=== PATIENT | female | born 1995 | race Hispanic/Latino ===

== ENCOUNTER 2016-08-29 14:03 | Inpatient (IN) | payer MEDICAID ==
[2016-08-29 14:45] LABS: ADD MANUAL DIFF? NO
[2016-08-29 14:58] LABS: PH,URINE 7.5 (4.7-8.0); URINE APPEARANCE CLEAR (CLEAR); URINE BILIRUBIN SMALL (NEGATIVE); URINE BLOOD NEGATIVE (NEGATIVE); URINE COLOR YELLOW (YELLOW); URINE GLUCOSE (UA) NEGATIVE (NEGATIVE); URINE KETONE NEGATIVE (NEGATIVE); URINE LEUKOCYTE ESTERASE NEGATIVE Leu/uL (NEGATIVE); URINE PROTEIN 100 mg/dL (<30 mg/dL)
[2016-08-29 14:58] LABS: ALB/GLOB RATIO 1.3 (1.1-1.8); ALKALINE PHOSPHATASE 228 U/L (38-133); ALT/SGPT 503 U/L (7-56); AST/SGOT 574 U/L (15-39); BASO # 0.03 K/mm3 (0.0-2.0); BASO % 0.3 % (0.0-3.0); BLOOD UREA NITROGEN 15 mg/dL (7-21); CALCIUM 9.5 mg/dL (8.4-10.5); CARBON DIOXIDE 28 mmol/L (21-33); CHLORIDE 100 mmol/L (98-107); EOS # 0.1 (0.0-0.7); EOS % 1.3 % (1.5-5.0); GFR AFRICAN-AMERICAN > 60; GLUCOSE,RANDOM 85 mg/dL (70-110); GRAN # 5.95 (1.4-6.5); GRAN % 65.3 % (50.0-68.0); HEMATOCRIT 37.3 % (36.0-48.0); LYMPH # 2.2 (1.2-3.4); LYMPH % 24.4 % (22.0-35.0); MEAN CELL VOLUME 83.6 fL (80.0-105.0); MEAN CORPUSCULAR HEMOGLOBIN 27.6 pg (25.0-35.0); MEAN PLATELET VOLUME 10.1 fl (7.0-11.0); MONO # 0.8 (0.1-0.6); MONO % 8.7 % (1.0-6.0); PLATELET COUNT 320 10^3/uL (120.0-450.0); POTASSIUM 4.2 mmol/L (3.6-5.0); RED CELL DISTRIBUTION WIDTH 14.3 % (11.5-14.5); SODIUM 139 mmol/L (132-148); TOTAL PROTEIN 7.4 g/dL (5.8-8.3); WHITE BLOOD COUNT 9.1 10^3/ul (4.5-11.0)
--- NOTE | 2016-08-29 15:01 | ED PDOC ---
Arrival/HPI - General Chief Complaint: Chest Pain Time Seen by Provider: 08/29/16 14:24 - History of Present Illness Narrative History of Present Illness (Text): 21F complains of anterior chest pain only at night when she lies down for the last 2 nights. no pain during the day, no pain currently. she also reports feeling sweaty last 2 nights as well and also had some vomiting last night. she was recently admitted to [facility] she says for endocarditis which she was told originated from the multiple skin wounds which she says is caused by constantly "picking." she was dc to a rehab facility where she received 6 weeks of IV abx via picc and was dc from there 3 weeks ago. she is worried bc she says she experienced similar chest pain when she was first dx w endocarditis. she denies any IVDA. she smokes. denies etoh. no ocp. Past Medical History - Cardiac Hx Cardiac Disorders: Yes Other/Comment: Endocarditis - Psychiatric Hx Psychophysiologic Disorder: Yes Hx Bipolar Disorder: Yes Hx Substance Use: No Family/Social History Family/Social History: Other (nc) Smoking Status: Heavy Smoker > 10 Cigarettes Daily Hx Alcohol Use: Yes Frequency of alcohol use: Socially Hx Substance Use: No Allergies/Home Meds Allergies/Adverse Reactions: Allergies No Known Allergies Allergy (Verified 08/29/16 14:10) Review of Systems - Physician Review All systems were reviewed & negative as marked: Yes - Review of Systems Constitutional: Night Sweats. absent: Fevers Eyes: absent: Vision Changes Respiratory: absent: SOB, Cough Cardiovascular: Chest Pain Gastrointestinal: Nausea, Vomiting. absent: Abdominal Pain Genitourinary Female: absent: Dysuria Skin: Skin Lesions Neurological: absent: Headache, Dizziness, Focal Weakness Physical Exam Vital Signs Reviewed: Yes Vital Signs Temp Pulse Resp BP Pulse Ox 08/29/16 18:39 69 20 137/77 98 08/29/16 14:17 99.2 F 74 16 136/71 98 Appearance: Positive for: Well-Appearing, Non-Toxic, Comfortable Pain Distress: None Mental Status: Positive for: Alert and Oriented X 3 - Systems Exam Head: Present: Atraumatic Pupils: Present: PERRL Extroacular Muscles: Present: EOMI Mouth: Present: Moist Mucous Membranes Nose (Internal): No: Epistaxis Neck: Present: Normal Range of Motion Respiratory/Chest: Present: Clear to Auscultation. No: Respiratory Distress, Accessory Muscle Use Cardiovascular: Present: Regular Rate and Rhythm. 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 upon further questioning the pt does admit to IVDA last 1 year ago. I disc test results w her and plan for admission. - Lab Interpretations Microbiology Results: Microbiology Results 08/29/16 15:15 Blood-Venous Blood Culture - Final NO GROWTH AFTER 5 DAYS 08/29/16 15:15 Blood-Venous Gram Stain - Final TEST NOT PERFORMED 08/29/16 14:31 Blood-Venous Blood Culture - Final NO GROWTH AFTER 5 DAYS 08/29/16 14:31 Blood-Venous Gram Stain - Final TEST NOT PERFORMED 08/29/16 14:40 Urine Urine Culture - Final Gram Positive Cocci Lab Results: 08/29/16 14:31 08/29/16 14:31 Lab Results 08/29/16 14:40: Urine Color Yellow, Urine Appearance Clear, Urine pH 7.5, Ur Specific [place] 1.015, Urine Protein 100 H, Urine Glucose (UA) Negative, Urine Ketones Negative, Urine Blood Negative, Urine Nitrate Negative, Urine Bilirubin Small H, Urine Urobilinogen 2.0 H, Ur Leukocyte Esterase Negative, Urine RBC 0 - 2, Urine WBC 1 - 3, Ur Epithelial Cells Many, Amorphous Sediment Few, Urine Bacteria Many, Urine Other Uyeast, Urine HCG, Qual Negative 08/29/16 14:31: Sodium 139, Potassium 4.2, Chloride 100, Carbon Dioxide 28, Anion Gap 15, BUN 15, Creatinine 0.7, Est GFR ( Amer) > 60, Est GFR (Non- Af Amer) > 60, Random Glucose 85, Calcium 9.5, Total Bilirubin 1.0, AST 574 H, ALT 503 H, Alkaline Phosphatase 228 H, Troponin I < 0.01, NT-Pro-B Natriuret Pep 76.0, Total Protein 7.4, Albumin 4.2, Globulin 3.3, Albumin/Globulin Ratio 1.3 08/29/16 14:31: D-Dimer, Quantitative 1.02 H 08/29/16 14:31: WBC 9.1, RBC 4.46, Hgb 12.3, Hct 37.3, MCV 83.6, MCH 27.6, MCHC 33.0, RDW 14.3, Plt Count 320, MPV 10.1, Gran % 65.3, Lymph % (Auto) 24.4, [place] % (Auto) 8.7 H, Eos % (Auto) 1.3 L, Baso % (Auto) 0.3, Gran # 5.95, Lymph # 2.2 , [place] # 0.8 H, Eos # 0.1, Baso # 0.03 - RAD Interpretation Radiology Orders: 08/29/16 14:37 CHEST TWO VIEWS (PA/LAT) [RAD] Stat 08/29/16 15:26 ANGIO CHEST PE PROTOCOL [CT] Stat - Medication Orders Current Medication Orders: Discontinued Medications Apixaban (Eliquis) 10 mg PO ONCE ONE PRN Reason: Protocol Stop: 08/31/16 13:01 Last Admin: 08/31/16 13:04 Dose: 10 mg Apixaban (Eliquis) 10 mg PO BID [place] PRN Reason: Protocol Last Admin: 09/02/16 18:20 Dose: 10 mg Escitalopram Oxalate (Lexapro) 10 mg PO DAILY [facility] Last Admin: 09/02/16 11:07 Dose: 10 mg Heparin Sodium (Porcine) (Heparin) 7,100 units 80 units/kg (7100 units) IV ONCE ONE PRN Reason: Protocol Stop: 08/29/16 17:04 Last Admin: 08/29/16 17:49 Dose: 7,100 units Heparin Sodium (Porcine) (Heparin) 3,600 units IV STAT STA Stop: 08/30/16 17:36 Last Admin: 08/30/16 16:40 Dose: 3,600 units Heparin Sodium/Sodium Chloride (Heparin 44114 Units/250ml 1/2 Normal Saline) 25 ,000 units in 250 mls @ 16.329 mls/hr IV .[id number] PRN; Protocol; 18 UNITS/KG/HR PRN Reason: ADJUST RATE PER PROTOCOL Last Admin: 08/31/16 09:20 Dose: 20.17 units/kg/hr, 18.298 mls/hr Iodixanol (Visipaque 320 Mg/Ml 100 Ml) Confirm Administered Dose 100 ml IV .STK- MED ONE Stop: 08/29/16 15:32 Pantoprazole Sodium (Protonix Ec Tab) 40 mg PO 0600 [place] Last Admin: 09/02/16 06:28 Dose: 40 mg Permethrin (Permethrin 5% Cream) 0 gm TOP ONCE ONE Stop: 08/30/16 02:22 Last Admin: 08/30/16 03:00 Dose: 1 appl Permethrin (Permethrin 5% Cream) 0 gm TOP ONCE ONE Stop: 08/31/16 14:16 Last Admin: 08/31/16 18:10 Dose: 1 appl Disposition/Present on Arrival - Present on Arrival Any Indicators Present on Arrival: No History of DVT/PE: No History of Uncontrolled Diabetes: No Urinary Catheter: No History of Decub. Ulcer: No History Surgical Site Infection Following: None - Disposition Have Diagnosis and Disposition been Completed?: Yes Diagnosis: Pulmonary embolism, History of endocarditis Disposition: HOSPITALIZED Disposition Time: 17:05 Condition: STABLE
[2016-08-29 15:10] LABS: TROPONIN I < 0.01 ng/mL
[2016-08-29 15:14] LABS: URINE RBC 0 - 2 /hpf (0-2)
[2016-08-29 15:15] LABS: URINE AMORPHOUS SEDIMENT FEW; URINE BACTERIA MANY (NEG); URINE EPITHELIAL CELLS MANY /hpf (0-5)
[2016-08-29] MEDS ORDERED: Iodixanol 320 MG/ML 100 ML BOTTLE IV ONE (15:31)
--- NOTE | 2016-08-29 16:58 | CT ---
PROCEDURE: CT Chest with contrast (Pulmonary Angiogram) HISTORY: chest pain +ddimer COMPARISON: None available. TECHNIQUE: Axial computed tomography images were obtained of the chest in the pulmonary arterial phase of enhancement. Coronal and sagittal reformatted images were created and reviewed. Intravenous contrast dose: 100 mL Visipaque 320 Radiation dose: Total exam DLP = 704.63 mGy-cm. This CT exam was performed using one or more of the following dose reduction techniques: Automated exposure control, adjustment of the mA and/or kV according to patient size, and/or use of iterative reconstruction technique. FINDINGS: PULMONARY ARTERIES: There is a filling defect in a segmental right lower lobe pulmonary artery branch extending into multiple subsegmental branch vessels. There is no other pulmonary arterial filling defect seen elsewhere. AORTA: No acute findings. No thoracic aortic aneurysm. LUNGS: No pulmonary infiltrate. There is an irregular nodular opacity in the right upper lobe protruding partially into a small bulla. This nodule measures approximately 1.5 cm in greatest dimension. There is an irregular opacity in the anterior right lower lobe, somewhat curvilinear and pleural-based. There is an 11 mm ovoid nodule in the left lower lobe, superior segment. PLEURAL SPACES: Unremarkable. No effusion or pneuomothorax. HEART: Unremarkable. No cardiomegaly. No significant pericardial effusion. LYMPH NODES: No lymphadenopathy. BONES, CHEST WALL: Unremarkable. No fracture or destructive lesion OTHER FINDINGS: Minimal splenomegaly. The spleen measures approximately 13.6 cm in greatest dimension. IMPRESSION: Pulmonary embolism to the right lower lobe. No pulmonary infiltrate. Multiple nodular opacities as described, 1 of which in the right upper lobe is associated with or protrudes into a small bulla. Uncertain significance. This does not appear to represent an intracavitary Aspergillus infection (aspergilloma). Followup of these nodular opacity is advised to rule out underlying neoplasm. .
[2016-08-29] MEDS ORDERED: Heparin25000 units/250ml 1/2NS 25,000 UNITS/250 ML BAG IV PRN (17:03)
[2016-08-29 17:19] VITALS: BMI 27.8
[2016-08-29 17:38] LABS: INR 1.03 (0.93-1.08); PARTIAL THROMBOPLASTIN TIME 26.1 Seconds (23.7-30.8)
[2016-08-29] MEDS: Heparin25000 units/250ml 1/2NS 25,000 UNITS/250 ML BAG IV PRN (17:50)
--- NOTE | 2016-08-29 18:27 | CARD ---
APPROVED REPORT EKG Measurement Heart [id number] <Conclusion> Normal sinus rhythm Normal ECG
--- NOTE | 2016-08-29 20:01 | CP.PCM.HP ---
<Vin Botello - Last Filed: 08/30/16 05:39> History of Present Illness - History of Present Illness History of Present Illness: cc: Chest pain HPI: Patient is a 21yo female with past medical history of endocarditis, hepatitis C that presents c/o chest pain. Patient reported that the pain started 2 days prior and was most noticeable at night when laying in bed. She stated that the pain was not as apparent during the day and was associated with diaphoresis, nausea and nonbilious, nonbloody vomiting. Patient also reported that she was recently admitted to [facility] for endocarditis for which she had a PICC line placed and underwent 6 weeks of IV antibiotics. In the ED, patient had a d-dimer which was elevated. A subsequent CT angio revealed RLL pulmonary embolism. She was started on heparin drip and admitted for further workup. She denied fever, chills, cough, abdominal pain, focal weakness, numbness, tingling, dysuria, frequency, urgency. 12point ROS as per HPI above, otherwise negative PMHx: Endocarditis, Hepatitis C PSHx: denies Allergies: NKDA Social Hx: Tobacco use, denies alcohol and illicit drug use Present on Admission - Present on Admission Any Indicators Present on Admission: No Past Patient History - Past Social History Smoking Status: Heavy Smoker > 10 Cigarettes Daily - CARDIAC Hx Cardiac Disorders: Yes Other/Comment: Endocarditis - PSYCHIATRIC Hx Psychophysiologic Disorder: Yes Hx Bipolar Disorder: Yes Hx Substance Use: No Meds Allergies/Adverse Reactions: Allergies Allergy/AdvReac Type Severity Reaction Status Date / Time No Known Allergies Allergy Verified 08/29/16 14:10 Physical Exam - Constitutional Appears: Non-toxic, No Acute Distress - Head Exam Head Exam: ATRAUMATIC, NORMAL INSPECTION, NORMOCEPHALIC - Eye Exam Eye Exam: EOMI, PERRL - ENT Exam ENT Exam: Mucous Membranes Moist - Neck Exam Neck exam: Positive for: Normal Inspection - Respiratory Exam Respiratory Exam: Clear to Auscultation Bilateral. absent: Rales, Rhonchi, Wheezes - Cardiovascular Exam Cardiovascular Exam: RRR, +S1, +S2. absent: Diastolic murmur, Gallop, JVD, Rubs , Systolic Murmur - GI/Abdominal Exam GI & Abdominal Exam: Normal Bowel Sounds, Soft. absent: Distended, Firm, Guarding, Rebound, Rigid, Tenderness - Extremities Exam Extremities exam: Positive for: normal inspection, pedal pulses present. Negative for: calf tenderness, pedal edema, tenderness - Neurological Exam Neurological exam: Alert, CN II-XII Intact, Oriented x3 - Psychiatric Exam Psychiatric exam: Normal Affect, Normal Mood - Skin Skin Exam: Dry, Normal Color, Warm Additional comments: multiple lesions on lower extremities Results - Vital Signs Recent Vital Signs: Last Vital Signs Temp 99.2 F 08/29/16 14:17 Pulse 69 08/29/16 18:39 Resp 20 08/29/16 18:39 BP 137/77 08/29/16 18:39 Pulse Ox 98 08/29/16 18:39 - Labs Result Diagrams: 08/29/16 14:31 08/29/16 14:31 Labs: Laboratory Results - last 24 hr 08/29/16 17:15 PT 11.1 INR 1.03 APTT 26.1 Assessment & Plan - Assessment and Plan (Free Text) Plan: 21yo female with history of endocarditis presents c/o chest pain associated with dyspnea and diaphoresis secondary to RLL pulmonary embolism 1. Pulmonary embolism -D-dimer elevated -EKG revealed normal sinus rhythm at 64bpm with no acute ST-T wave changes -CXR revealed no active disease -CT angio revealed RLL pulmonary embolism; see full report -Patient started on heparin drip -Echocardiogram pending -Lower extremity venous duplex pending -Coagulopathy workup pending: Protein C/S, Antithrombin, Prothrombin, Factor V leiden -Hematology consulted - Dr. Salazar 2. History of endocarditis -Echocardiogram pending -Blood cultures pending -ID consulted - Dr. Berg 3. Hepatitis C -GI consulted - Dr. Hou 4. Scabies -Permethrin cream Patient seen and case discussed with attending, Dr. Joseph - Date & Time Date: 08/29/16 Time: 20:02 <Doris Joseph - Last Filed: 08/30/16 20:22> Results - Vital Signs Recent Vital Signs: Last Vital Signs Temp 98.1 F 08/30/16 00:01 Pulse 66 08/30/16 06:00 Resp 18 08/30/16 00:01 BP 126/79 08/30/16 00:01 Pulse Ox 100 08/30/16 00:00 - Labs Result Diagrams: 08/30/16 06:30 08/30/16 06:30 Labs: Laboratory Results - last 24 hr 08/30/16 08/30/16 08/30/16 06:30 06:30 06:30 WBC 9.4 RBC 4.53 Hgb 12.4 Hct 38.0 MCV 83.9 MCH 27.4 MCHC 32.6 RDW 14.3 Plt Count 289 MPV 9.7 Gran % 48.5 L Lymph % (Auto) 43.0 H [place] % (Auto) 5.6 Eos % (Auto) 2.6 Baso % (Auto) 0.3 Gran # 4.55 Lymph # 4.0 H [place] # 0.5 Eos # 0.2 Baso # 0.03 PT INR APTT Sodium 138 Potassium 3.8 Chloride 101 Carbon Dioxide 26 Anion Gap 15 BUN 11 Creatinine 0.5 Est GFR ( Amer) > 60 Est GFR (Non-Af Amer) > 60 Random Glucose 88 Calcium 9.2 Total Bilirubin 0.5 AST 247 H ALT 397 H Alkaline Phosphatase 199 H Total Protein 7.3 Albumin 4.1 Globulin 3.3 Albumin/Globulin Ratio 1.2 Procalcitonin < 0.05 L Acetaminophen Alcohol, Quantitative 08/30/16 08/30/16 08/30/16 06:30 08:30 09:00 WBC RBC Hgb Hct MCV MCH MCHC RDW Plt Count MPV Gran % Lymph % (Auto) [place] % (Auto) Eos % (Auto) Baso % (Auto) Gran # Lymph # [place] # Eos # Baso # PT 11.2 INR 1.04 APTT 50.4 H Sodium Potassium Chloride Carbon Dioxide Anion Gap BUN Creatinine Est GFR ( Amer) Est GFR (Non-Af Amer) Random Glucose Calcium Total Bilirubin AST ALT Alkaline Phosphatase Total Protein Albumin Globulin Albumin/Globulin Ratio Procalcitonin Acetaminophen < 10.0 L Alcohol, Quantitative < 10 08/30/16 16:05 WBC RBC Hgb Hct MCV MCH MCHC RDW Plt Count MPV Gran % Lymph % (Auto) [place] % (Auto) Eos % (Auto) Baso % (Auto) Gran # Lymph # [place] # Eos # Baso # PT INR APTT 36.7 H Sodium Potassium Chloride Carbon Dioxide Anion Gap BUN Creatinine Est GFR ( Amer) Est GFR (Non-Af Amer) Random Glucose Calcium Total Bilirubin AST ALT Alkaline Phosphatase Total Protein Albumin Globulin Albumin/Globulin Ratio Procalcitonin Acetaminophen Alcohol, Quantitative Attending/Attestation - Attestation I have personally seen and examined this patient.: Yes I have fully participated in the care of the patient.: Yes I have reviewed all pertinent clinical information: Yes Notes (Text): 08/30/16 20:21 Patient was seen when she was in bed # 5 in the ER. Agree with history, physical examination, assessment and plan.
[2016-08-30] MEDS ORDERED: Permethrin 5% Cream(60 gm) TOP ONE (02:21)
--- NOTE | 2016-08-30 08:02 | CP.PCM.CON ---
History of Present Illness - History of Present Illness History of Present Illness: Asked by hospitalist team for a GI consultation on this patient. 21 year old female with history of IVDA (heroin use 1 year ago), endocarditis, HCV ( diagnosed in June 2016 at [place], treatment naive), who is admitted to hospital with complaint of substernal chest pain. GI called for evaluation of elevated LFTs. She initially was describing substernal chest discomfort which was worse on activity and associated with diaphoresis and is currently undergoing treatment for acute pulmonary embolism. She denies abdominal pain, nausea, vomiting, diarrhea, fever/chills, weight loss, rectal bleeding, jaundice , pruritis, excessive ETOH or tylenol use. No prior endoscopic evaluation. Review of vitals from today are normal. Social history: smokes 1 PPD cigarettes, social ETOH use Family history: Reviewed, patient denies history of GI malignancies Review of Systems - Review of Systems Review of Systems: - All other comprehensive 12 point review of systems performed, negative - Cardiovascular Cardiovascular: Chest Pain with Activity - Respiratory Respiratory: absent: Cough, Dyspnea, Hemoptysis, Dyspnea on Exertion, Wheezing, Snoring, Stridor, Pain on Inspiration, Chest Congestion, Excessive Mucous Production, Change in Mucous Color, Pain with Coughing, Other - Gastrointestinal Gastrointestinal: absent: Abdominal Pain, Belching, Bloating, Change in Bowel Habits, Change in Stool Character, Coffee Ground Emesis, Constipation, Cramping , Diarrhea, Dyspepsia, Dysphagia, Early Satiety, Excessive Flatus, Fecal Incontinence, Heartburn, Hematemesis, Hematochezia, Loose Stools, Melena, Nausea , Odynophagia, Temesmus, Vomiting, Other - Musculoskeletal Musculoskeletal: absent: Abnormal Gait, Arthralgias, Atrophy, Back Pain, Deformity, Joint Swelling, Limited Range of Motion, Loss of Height, Muscle Cramps, Muscle Weakness, Myalgias, Neck Pain, Numbness, Radiating Pain into Limb , Stiffness, Tingling, Other - Neurological Neurological: absent: Abnormal Gait, Abnormal Hearing, Abnormal Movements, Abnormal Speech, Behavioral Changes, Burning Sensations, Confusion, Convulsions , Disequilibrium, Dizziness, Numbness, Focal Weakness, Frequent Falls, Headaches , Lack of Coordination, Loss of Vision, Memory Loss, Paresthesias, Radicular Pain, Restless Legs, Sensory Deficit, Syncope, Tingling, Tremor, Vertigo, Weakness, Other Visual Disturbances, Other Past Patient History - Past Social History Smoking Status: Heavy Smoker > 10 Cigarettes Daily - CARDIAC Hx Cardiac Disorders: Yes Other/Comment: Endocarditis - PULMONARY Hx Respiratory Disorders: No - NEUROLOGICAL Hx Neurological Disorder: Yes Other/Comment: bipolar - HEENT Hx HEENT Problems: Yes 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 - RENAL Hx Chronic Kidney Disease: No - ENDOCRINE/METABOLIC Hx Endocrine Disorders: No - HEMATOLOGICAL/ONCOLOGICAL Hx Blood Disorders: Yes Hx AIDS: No Hx Anemia: No Hx Cancer: No Hx Chemotherapy: No Hx Cirrhosis: No Hx Hepatitis A: No Hx Hepatitis B: No Hx Hepatitis C: Yes Hx Human Immunodeficiency Virus (HIV): No Hx Metastesis: No Hx Shingles: No Hx Unexplained Bleeding: No - INTEGUMENTARY Hx Dermatological Problems: Yes Other/Comment: bed bug bits on bilateral ankles - MUSCULOSKELETAL/RHEUMATOLOGICAL Hx Musculoskeletal Disorders: No Hx Falls: No - GASTROINTESTINAL Hx Gastrointestinal Disorders: No - GENITOURINARY/GYNECOLOGICAL Hx Genitourinary Disorders: No - PSYCHIATRIC Hx Psychophysiologic Disorder: Yes Hx Bipolar Disorder: Yes Hx Substance Use: No - SURGICAL HISTORY Hx Surgeries: No Hx Cardiac Catheterization: No Hx Coronary Stent: No Meds Allergies/Adverse Reactions: Allergies Allergy/AdvReac Type Severity Reaction Status Date / Time No Known Allergies Allergy Verified 08/29/16 14:10 - Medications Medications: Current Medications Heparin Sodium/Sodium Chloride (Heparin 95853 Units/250ml 1/2 Normal Saline) 25 ,000 units in 250 mls @ 16.329 mls/hr IV .[id number] PRN; Protocol; 18 UNITS/KG/HR PRN Reason: ADJUST RATE PER PROTOCOL Last Admin: 08/29/16 17:50 Dose: 18 units/kg/hr, 16.329 mls/hr Physical Exam - Constitutional Appears: Non-toxic, No Acute Distress - Head Exam Head Exam: NORMAL INSPECTION - Eye Exam Eye Exam: EOMI, Normal appearance - ENT Exam ENT Exam: Mucous Membranes Moist - Respiratory Exam Respiratory Exam: Clear to Auscultation Bilateral - Cardiovascular Exam Cardiovascular Exam: REGULAR RHYTHM, +S1, +S2 - GI/Abdominal Exam GI & Abdominal Exam: Normal Bowel Sounds, Soft Additional comments: non tender to palpation in four quadrants no palpable hepato/splenomegaly - Extremities Exam Extremities exam: Positive for: normal inspection - Neurological Exam Neurological exam: Alert, CN II-XII Intact, Oriented x3, Reflexes Normal - Psychiatric Exam Psychiatric exam: Normal Affect, Normal Mood - Skin Skin Exam: Dry, Intact, Normal Color, Warm Additional comments: superficial abrasions and tattoos on b/l lower extremities Results - Vital Signs Recent Vital Signs: Last Vital Signs Temp 98.1 F 08/30/16 00:01 Pulse 63 08/30/16 00:01 Resp 18 08/30/16 00:01 BP 126/79 08/30/16 00:01 Pulse Ox 100 08/30/16 00:00 - Labs Result Diagrams: 08/29/16 14:31 08/29/16 14:31 Labs: Laboratory Results - last 24 hr 08/29/16 17:15 PT 11.1 INR 1.03 APTT 26.1 Assessment & Plan - Assessment and Plan (Free Text) Assessment: History of polysubstance abuse History of endocarditis Chest pain - acute pulmonary embolism Transaminitis, HCV Plan: - Diet as tolerated - Continue with anticoagulation (heparin) as per medical team - Hematology workup in progress for hypercoaguability - Obtain hepatitis and autoimmune panels - Continue to monitor LFTs - Obtain urine drug screen, tylenol level - Obtain abdominal US along with doppler in order to rule out PV thrombosis, particularly given acute PE
[2016-08-30 08:03] LABS: ADD MANUAL DIFF? NO
[2016-08-30 08:10] LABS: BASO # 0.03 K/mm3 (0.0-2.0); BASO % 0.3 % (0.0-3.0); EOS # 0.2 (0.0-0.7); EOS % 2.6 % (1.5-5.0); GRAN # 4.55 (1.4-6.5); GRAN % 48.5 % (50.0-68.0); MEAN CELL VOLUME 83.9 fL (80.0-105.0); MEAN CORPUSCULAR HEMOGLOBIN 27.4 pg (25.0-35.0); MEAN CORPUSCULAR HGB CONC 32.6 g/dl (31.0-37.0); MEAN PLATELET VOLUME 9.7 fl (7.0-11.0); MONO # 0.5 (0.1-0.6); MONO % 5.6 % (1.0-6.0); PLATELET COUNT 289 10^3/uL (120.0-450.0); RED CELL DISTRIBUTION WIDTH 14.3 % (11.5-14.5); WHITE BLOOD COUNT 9.4 10^3/ul (4.5-11.0)
[2016-08-30 08:17] LABS: ALB/GLOB RATIO 1.2 (1.1-1.8); ALKALINE PHOSPHATASE 199 U/L (38-133); ALT/SGPT 397 U/L (7-56); AST/SGOT 247 U/L (15-39); BILIRUBIN,TOTAL 0.5 mg/dL (0.2-1.3); BLOOD UREA NITROGEN 11 mg/dL (7-21); CALCIUM 9.2 mg/dL (8.4-10.5); CARBON DIOXIDE 26 mmol/L (21-33); CHLORIDE 101 mmol/L (98-107); GFR AFRICAN-AMERICAN > 60; GLUCOSE,RANDOM 88 mg/dL (70-110); POTASSIUM 3.8 mmol/L (3.6-5.0); SODIUM 138 mmol/L (132-148); TOTAL PROTEIN 7.3 g/dL (5.8-8.3)
[2016-08-30 08:21] LABS: INR 1.04 (0.93-1.08); PARTIAL THROMBOPLASTIN TIME 50.4 Seconds (23.7-30.8)
--- NOTE | 2016-08-30 08:33 | US ---
HISTORY: Leg pain and swelling. Evaluate for DVT PHYSICIAN(S): Luis Carlos Soni MD. TECHNIQUE: Duplex sonography and color-flow Doppler with graded compression were used to evaluate the deep venous systems of both lower extremities. FINDINGS: The visualized deep venous systems of both lower extremities are sonographically normal and compressible. Normal wave forms and augmentation are seen. There is no sonographic evidence for deep venous thrombosis in the visualized segments of both lower extremities. IMPRESSION: No sonographic evidence for deep venous thrombosis in the visualized segments of both lower extremities.
--- NOTE | 2016-08-30 09:52 | RAD ---
HISTORY: cp COMPARISON: No prior. TECHNIQUE: Chest PA and lateral FINDINGS: LUNGS: There is linear scarring in the right lung apex PLEURA: No significant pleural effusion identified. No pneumothorax apparent. CARDIOVASCULAR: Normal. OSSEOUS STRUCTURES: No significant abnormalities. VISUALIZED UPPER ABDOMEN: Normal. OTHER FINDINGS: None. IMPRESSION: No active disease.
--- NOTE | 2016-08-30 10:17 | CON ---
DATE: 08/30/2016 This is a 21-year-old woman with pulmonary embolism. The patient has a complex medical history, incl uding heroin abuse. A year ago, she says she used it. In any event, she was recently treated for en docarditis with 6 weeks of antibiotics up at [facility] and now is admitted for shortness of breath and chest pain for 2 days and was found to have a pulmonary embolism. PHYSICAL EXAMINATION: SKIN: No petechiae, no bruises. HEENT: Anicteric. NODES: None palpable in the axillary, cervical, supraclavicular or inguinal regions. LUNGS: Clear at present. No rhonchi, rales, wheezing, or rubs. HEART: S1, S2. ABDOMEN: Shows no liver, no spleen, no tenderness, no ascites. EXTREMITIES: No edema,. Homans sign negative. CENTRAL NERVOUS SYSTEM: No focal finding. LABORATORY DATA: At present, the patient, on laboratory tests, has markedly elevated liver function tests at the range of SGOT of 500 and a CAT scan shows spleen is mildly enlarged at 13.6 cm, although the platelet count is normal and the white count is normal. So she does not seem to have a hyperspl enism. In terms of the blood clot: 1. I ordered protein S, protein C, antithrombin III, lupus anticoagulant and Leiden factor and proth rombin, 40859 gene assays to make sure there is no underlying coagulopathy, but secondarily patient w ill need a blood thinner for the next several months. It is unclear whether she will be able to take the Eliquis and/or just Coumadin with close followup because liver functions will make it difficult to control that the Coumadin doses. Injecting Lovenox for the next several months is probably not re asonable in this situation. So she will be followed by the training associate for the Coumadin levels. In te suzanne of putting in a filter, if at all possible, I would hopefully, not do it. It is another foreign body in her. She already had endocarditis. So if at all possible, we can anticoagulate her adequate ly, hopefully try to hold off on another indwelling foreign body. So at this point, we have sent off blood tests to rule out any underlying condition. In the meantime, she is on heparin. She will be transferred to the Coumadin as per the training associate after an evaluation for the liver by the GI people, etc. Vinicio Martin OSCAR cc: [phone] TT: 08/30/2016 10:16:32 Confirmation # [id number] Dictation # [id number]
--- NOTE | 2016-08-30 11:35 | CP.PCM.PN ---
<Josue Nelson - Last Filed: 08/30/16 11:37> Subjective - Date & Time of Evaluation Date of Evaluation: 08/30/16 Time of Evaluation: 11:35 - Subjective Subjective: Med progress note. Attending: Dr. Manning Pt seen and examined at bedside. No acute distress. Says she is former heroin abuse, not used in a year. No fevers, chills, vomiting, diarrhea. Will check uds and alc level. Objective - Vital Signs/Intake and Output Vital Signs (last 24 hours): Temp Pulse Resp BP Pulse Ox 98.1 F 66 18 126/79 100 08/30/16 00:01 08/30/16 06:00 08/30/16 00:01 08/30/16 00:01 08/30/16 00:00 Intake and Output: 08/30/16 08/30/16 06:59 18:59 Intake Total 612 Balance 612 - Medications Medications: Current Medications Heparin Sodium/Sodium Chloride (Heparin 94730 Units/250ml 1/2 Normal Saline) 25 ,000 units in 250 mls @ 16.329 mls/hr IV .[id number] PRN; Protocol; 18 UNITS/KG/HR PRN Reason: ADJUST RATE PER PROTOCOL Last Admin: 08/29/16 17:50 Dose: 18 units/kg/hr, 16.329 mls/hr - Labs Labs: 08/30/16 06:30 08/30/16 06:30 PT 11.2 Seconds (9.9-11.8) 08/30/16 06:30 INR 1.04 (0.93-1.08) 08/30/16 06:30 APTT 50.4 Seconds (23.7-30.8) H 08/30/16 06:30 - Constitutional Appears: Non-toxic, No Acute Distress - Head Exam Head Exam: ATRAUMATIC, NORMAL INSPECTION, NORMOCEPHALIC - Eye Exam Eye Exam: EOMI - ENT Exam ENT Exam: Mucous Membranes Moist - Neck Exam Neck Exam: Full ROM, Normal Inspection - Respiratory Exam Respiratory Exam: NORMAL BREATHING PATTERN. absent: Respiratory Distress - Cardiovascular Exam Cardiovascular Exam: +S1, +S2 - GI/Abdominal Exam GI & Abdominal Exam: Soft, Normal Bowel Sounds. absent: Tenderness - Extremities Exam Extremities Exam: Full ROM. absent: Normal Inspection Additional comments: Scabs b/l lower extremities - Back Exam Back Exam: NORMAL INSPECTION - Neurological Exam Neurological Exam: Alert, Awake, Oriented x3 - Psychiatric Exam Psychiatric exam: Normal Affect, Normal Mood - Skin Skin Exam: Dry, Intact, Normal Color, Warm Assessment and Plan - Assessment and Plan (Free Text) Assessment: This is a 21 yo female with history of endocarditis presents c/o chest pain associated with dyspnea and diaphoresis secondary to RLL pulmonary embolism 1. Pulmonary embolism -D-dimer elevated -EKG revealed normal sinus rhythm at 64bpm with no acute ST-T wave changes -CXR revealed no active disease -CT angio revealed RLL pulmonary embolism; see full report -Patient started on heparin drip -Echocardiogram pending -Lower extremity venous duplex pending -Coagulopathy workup pending: Protein C/S, Antithrombin, Prothrombin, Factor V leiden -Hematology consulted - Dr. Salazar 2. History of endocarditis -Echocardiogram pending -Blood cultures pending -ID consulted - Dr. Berg 3. Hepatitis C -GI consulted - Dr. Hou 4. Scabies -Permethrin cream 5. hx of drug abuse -UDS -alc level 6. GI/DVT ppx -heparin drip -protonix discussed with Dr. Manning <Tennille Manning - Last Filed: 08/30/16 14:08> Objective - Vital Signs/Intake and Output Vital Signs (last 24 hours): Temp Pulse Resp BP Pulse Ox 98.1 F 66 18 126/79 100 08/30/16 00:01 08/30/16 06:00 08/30/16 00:01 08/30/16 00:01 08/30/16 00:00 Intake and Output: 08/30/16 08/30/16 06:59 18:59 Intake Total 612 Balance 612 - Medications Medications: Current Medications Heparin Sodium/Sodium Chloride (Heparin 93382 Units/250ml 1/2 Normal Saline) 25 ,000 units in 250 mls @ 16.329 mls/hr IV .[id number] PRN; Protocol; 18 UNITS/KG/HR PRN Reason: ADJUST RATE PER PROTOCOL Last Admin: 08/29/16 17:50 Dose: 18 units/kg/hr, 16.329 mls/hr Pantoprazole Sodium (Protonix Ec Tab) 40 mg PO 0600 [place] - Labs Labs: 08/30/16 06:30 08/30/16 06:30 PT 11.2 Seconds (9.9-11.8) 08/30/16 06:30 INR 1.04 (0.93-1.08) 08/30/16 06:30 APTT 50.4 Seconds (23.7-30.8) H 08/30/16 06:30 Attending/Attestation - Attestation I have personally seen and examined this patient.: Yes I have fully participated in the care of the patient.: Yes I have reviewed all pertinent clinical information, including history, physical exam and plan: Yes Notes (Text): 08/30/16 14:03 21 year old female with past medical history of infective endocarditis s/p antibiotics therapy, hepatitis C, and history of substance abuse who presented with complaint of chest pain and shortness of breath. She was found to have pulmonary embolism and started on heparin drip. Echocardiogram was done with report pending. Hematology evaluation was requested for PE as well as ID evaluation for history of infective endocarditis. Coagulopathy workup has been ordered. Will follow up on blood cultures. GI evaluation was appreciated for hepatitis C and elevated LFTs. Abdominal US with doppler is ordered. She was counselled on risks of continued subtance abuse. Tennille Manning MD Hospitalist.
--- NOTE | 2016-08-30 13:05 | CARD ---
APPROVED REPORT EXAM: Two-dimensional and M-mode echocardiogram with Doppler and color Doppler. INDICATION 2D DIMENSIONS IVSd1.0 (0.7-1.1cm)LVDd5.4 (3.9-5.9cm) PWd0.8 (0.7-1.1cm)LVDs3.5 (2.5-4.0cm) FS (%) 36.0 %LVEF (%)65.1 (>50%) M-Mode DIMENSIONS Left Atrium (MM)3.10 (2.5-4.0cm)Aortic Root3.10 (2.2-3.7cm) Aortic Cusp Exc.1.80 (1.5-2.0cm) Aortic Valve AoV Peak Tlkzafur540.0cm/Viridiana Peak GR.7mmHg Mitral Valve MV E Azfmkgwy58.9cm/sMV A Qvobfqgn28.5cm/sE/A ratio2.2 TDI Lateral E' Peak V21.20cm/sMedial E' Peak V10.10cm/sE/Lateral E'3.8 E/Medial E'8.0 Tricuspid Valve TR Peak Emtjwhop004xy/sRAP SPFCTIEX28shQpTI Peak Gr.30mmHg KIIS05deMs LEFT VENTRICLE The left ventricle is normal size. There is normal left ventricular wall thickness. The left ventricular function is normal. The left ventricular ejection fraction is within the normal range. There is normal LV segmental wall motion. The left ventricular diastolic function is normal. RIGHT VENTRICLE The right ventricle is borderline dilated. There is normal right ventricular wall thickness. Systolic function is borderline reduced. ATRIA The left atrium size is normal. The right atrium size is normal. AORTIC VALVE The aortic valve is not well visualized. No aortic regurgitation is present. There is no aortic valvular stenosis. MITRAL VALVE The mitral valve is normal in structure. There is no mitral valve regurgitation noted. TRICUSPID VALVE A moderate size mobile tricusped valve vegitation is noted There is mild tricuspid regurgitation. There is mild pulmonary hypertension. GREAT VESSELS The aortic root is normal in size. The IVC collapses <50% with inspiration. PERICARDIAL EFFUSION There is no pericardial effusion. <Conclusion> A moderate size mobile tricusped valve vegitation is noted There is mild tricuspid regurgitation. There is mild pulmonary hypertension. There is normal left ventricular wall thickness. The left ventricular function is normal. The left ventricular ejection fraction is within the normal range. There is normal LV segmental wall motion.
[2016-08-30] MEDS: Heparin25000 units/250ml 1/2NS 25,000 UNITS/250 ML BAG IV PRN (16:40)
--- NOTE | 2016-08-30 18:31 | CON ---
DATE: 08/30/2016 The patient is in room 269, bed 1. The patient seen earlier today. CHIEF COMPLAINT: Chest pain times several days. HISTORY OF PRESENT ILLNESS: This is a 21-year-old female with history of intravenous drug abuse, las t used 1 year ago according to the patient. She said she has not been in this hospital ever in the p ast. She lives in [place] and was just visiting someone here and came here in evaluation of the c hest pain. The patient said the pain has been off and on now for a few nights. There have been no f delilah and no chills. No abdominal pain, diarrhea or constipation. Has minimal cough. No headaches or blurred vision. No nausea or vomiting. PAST MEDICAL HISTORY: Significant for intravenous drug abuse, which the last use was a year ago acco rding to the patient. The patient also has hepatitis C and patient has alcoholism and alcohol use an d a history of endocarditis in the past from intravenous drug abuse, last used 1 year ago. According to note, the patient recently completed endocarditis therapy. Hepatitis C, alcoholism, bi polar and a heavy smoker. PAST SURGICAL HISTORY: Noncontributory. ALLERGIES: The patient has no known allergies to any antibiotics. MEDICATIONS AT HOME: Include Lexapro and Xanax. PHYSICAL EXAMINATION: GENERAL: The patient is in bed in no acute distress, nontoxic. VITAL SIGNS: Temperature of 98, pulse of 62, respiratory rate of 18, blood pressure is 126/60. HEENT: Unremarkable. NECK: Supple. LUNGS: Have decreased breath sounds. HEART: Normal S1, S2. ABDOMEN: Soft, nontender. LABORATORY EXAMINATION: Review of cultures reveals the blood cultures no growth. Urine culture is G juan-positive cocci and D-dimer is elevated. Dr. Manning's note is reviewed. Dr. Salazar's consultation is reviewed. Dr. Moreland's consultation is reviewed. The patient also had an echocardiogram which sonya wed a vegetation on the tricuspid valve, a moderate size is what is described. No exact size is give n. This was read by Dr. Kulwinder Barron. ASSESSMENT AND PLAN: A 21-year-old female with a history of intravenous drug abuse according to the patient a year ago when last used. The patient's recent diagnosis of endocarditis was treated with i ntravenous antibiotics at [facility], history of hepatitis C and alcoholism and history of e ndocarditis, now presenting with chest pain. 1. Pulmonary emboli and negative blood cultures. No evidence of active endocarditis at this point. No fevers and no chills. Will check on the final blood culture results. We will order an HIV on patient and Dr. Salazar's workup for protein C and protein S and hypercoagulable state workup is not ed. Hepatitis profile is noted. I will make further recommendations. The case discussed with Dr. Romeo flores. Jeovany Chisholm MD cc: [phone] TT: 08/30/2016 18:31:01 Confirmation # [id number] Dictation # [id number] mn
--- NOTE | 2016-08-30 19:08 | CON ---
DATE: 08/30/2016 REQUESTING PHYSICIAN: Dr. Manning. CHIEF COMPLAINT: The patient presented to the Emergency Room with chest pain. HISTORY OF PRESENT ILLNESS: The patient is a 21-year-old female that presented to the Emergency Room with chest pain. On x-ray and on CAT scan, it was noted that she has a right lower lobe pulmonary e mbolus. The patient is noted on CAT scan also to have lung nodules, etiology unclear. She has a his tory of drug abuse, but has not used heroin in about a year and is noted to have scabies as well. At this time, she has no complaints of shortness of breath, cough, wheezing, chest congestion, no chest pain. No fever, chills, nausea, vomiting. No abdominal pain or diarrhea. The patient is resting c omfortably in the bed on room air. PAST MEDICAL HISTORY: As above. ALLERGIES: She has no known allergies. CURRENT MEDICATIONS: Can be evaluated as per the nurses' intake form. SOCIAL HISTORY: The patient has a history of drug abuse in the past. She does smoke. No ETOH abuse . FAMILY HISTORY: Noncontributory. REVIEW OF SYSTEMS: CONSTITUTIONAL: All negative. HEENT: All negative. CARDIOVASCULAR: Did present with the chest pain. RESPIRATORY: Has a pulmonary embolus. GASTROINTESTINAL: All negative. GENITOURINARY: All negative. MUSCULOSKELETAL: All negative. NEUROPSYCHIATRIC: All negative. ENDOCRINE: All negative. HEMATOLOGIC: All negative. IMMUNOLOGIC: All negative. INTEGRITY: All negative. PHYSICAL EXAMINATION: VITAL SIGNS: Note that her temperature is 98.1, her pulse is 66, respirations are 18, and BP is 126/ 79. SKIN: Warm and dry. HEAD: Atraumatic, normocephalic. EYES: Reactive to light. EARS, NOSE AND THROAT: Seem to be within normal limits. NECK: Supple, no JVD, no thyroid enlargement, no lymph nodes. HEART: Has a regular rate and rhythm. Normal S1, S2. LUNGS: Reveal good breath sounds bilaterally. ABDOMEN: Soft, nontender, normal bowel sounds. No organomegaly noted. GENITALIA AND RECTAL: Deferred. MUSCULOSKELETAL: No joint deformities. EXTREMITIES: Reveal no edema. NEUROLOGIC: She seems to be grossly intact. LABORATORY DATA: Her white count is 9.4, hemoglobin is 12.4, hematocrit 38.0 with platelets of 289,0 00. The patient's sodium is 138, potassium 3.8, chloride 101, CO2 of 26 with a BUN of 11, creatinine of 0.5, and a glucose of 88. The patient has elevated liver enzymes. As far as CT of the chest, shila cuellar has pulmonary embolus in the right lower lobe. No infiltrates. She has multiple nodular opacities and a small bullae in the right upper lobe area. IMPRESSION: The patient has right lower lobe pulmonary embolus. She has multiple pulmonary nodules, etiology unclear. The patient does have a right upper lobe bullae and has a history of drug abuse a nd a history of scabies. PLAN: We will continue the IV heparin. Will follow her PT, PTT and INR closely. The patient is on permethrin and Protonix. At this time she is in isolation and we will follow closely and treat aggre ssively along with the other consultants and the primary care doctor. Dillan Peck MD cc: [phone] TT: 08/30/2016 19:07:34 Confirmation # [id number] Dictation # [id number] hayden
[2016-08-31] MEDS: Pantoprazole 40 mg EC Tab PO SCH (06:26)
[2016-08-31 07:29] LABS: ADD MANUAL DIFF? NO
[2016-08-31 07:41] LABS: BASO # 0.04 K/mm3 (0.0-2.0); BASO % 0.4 % (0.0-3.0); EOS # 0.3 (0.0-0.7); EOS % 2.6 % (1.5-5.0); GRAN # 5.39 (1.4-6.5); GRAN % 53.1 % (50.0-68.0); LYMPH # 3.7 (1.2-3.4); LYMPH % 36.9 % (22.0-35.0); MEAN CELL VOLUME 83.9 fL (80.0-105.0); MEAN CORPUSCULAR HEMOGLOBIN 26.7 pg (25.0-35.0); MEAN CORPUSCULAR HGB CONC 31.8 g/dl (31.0-37.0); MEAN PLATELET VOLUME 9.9 fl (7.0-11.0); MONO # 0.7 (0.1-0.6); PLATELET COUNT 313 10^3/uL (120.0-450.0); RED CELL DISTRIBUTION WIDTH 14.1 % (11.5-14.5); WHITE BLOOD COUNT 10.1 10^3/ul (4.5-11.0)
--- NOTE | 2016-08-31 07:56 | CP.PCM.PN ---
Subjective - Date & Time of Evaluation Date of Evaluation: 08/31/16 Time of Evaluation: 07:52 - Subjective Subjective: Patient seen and examined, resting in bed comfortably. No acute events overnight. She denies abdominal pain, nausea, vomiting, diarrhea, fever/ chills. Tolerating PO diet without difficulty. Her substernal chest discomfort has resolved. Review of vitals from this morning show bradycardia. 12 point review of systems performed, negative aside from mentioned above. Objective - Vital Signs/Intake and Output Vital Signs (last 24 hours): Temp Pulse Resp BP Pulse Ox 97.9 F 88 20 123/71 98 08/31/16 05:47 08/31/16 05:47 08/31/16 05:47 08/31/16 05:47 08/31/16 05:47 Intake and Output: 08/31/16 08/31/16 06:59 18:59 Intake Total 816 Output Total 0 Balance 816 - Medications Medications: Current Medications Heparin Sodium/Sodium Chloride (Heparin 95886 Units/250ml 1/2 Normal Saline) 25 ,000 units in 250 mls @ 16.329 mls/hr IV .[id number] PRN; Protocol; 18 UNITS/KG/HR PRN Reason: ADJUST RATE PER PROTOCOL Last Admin: 08/30/16 16:40 Dose: 20.17 units/kg/hr, 18.298 mls/hr Pantoprazole Sodium (Protonix Ec Tab) 40 mg PO 0600 [place] Last Admin: 08/31/16 06:26 Dose: 40 mg - Labs Labs: 08/31/16 07:00 08/30/16 06:30 PT 11.2 Seconds (9.9-11.8) 08/30/16 06:30 INR 1.04 (0.93-1.08) 08/30/16 06:30 APTT 66.5 Seconds (23.7-30.8) H 08/30/16 22:05 - Constitutional Appears: Non-toxic, No Acute Distress - Head Exam Head Exam: NORMAL INSPECTION - Eye Exam Eye Exam: EOMI, Normal appearance - ENT Exam ENT Exam: Mucous Membranes Moist - Respiratory Exam Respiratory Exam: Clear to Ausculation Bilateral - Cardiovascular Exam Cardiovascular Exam: REGULAR RHYTHM, +S1, +S2 - GI/Abdominal Exam GI & Abdominal Exam: Soft, Normal Bowel Sounds Additional comments: non tender to palpation in four quadrants - Extremities Exam Additional comments: superficial abrasions and tattoos present on b/l lower extremities - Skin Skin Exam: Dry, Intact, Normal Color, Warm Assessment and Plan - Assessment and Plan (Free Text) Assessment: History of polysubstance abuse HCV Chest pain - resolved, acute PE Transaminitis in setting of underlying HCV and acute PE Plan: - Diet as tolerated - Follow up hematology recommendations regarding hypercoaguable workup - Awaiting results of autoimmune and hepatitis panels - LFTs trending down, continue to monitor - Obtain abdominal US with doppler to rule out PVT - No ongoing GI issues, will sign off case. Patient would benefit from subsequent outpatient follow up. Please reconsult as necessary, thank you.
[2016-08-31 08:15] LABS: ALB/GLOB RATIO 1.3 (1.1-1.8); ALKALINE PHOSPHATASE 171 U/L (38-133); ALT/SGPT 351 U/L (7-56); AST/SGOT 184 U/L (15-39); BILIRUBIN,TOTAL 0.4 mg/dL (0.2-1.3); BLOOD UREA NITROGEN 10 mg/dL (7-21); CALCIUM 9.2 mg/dL (8.4-10.5); CARBON DIOXIDE 24 mmol/L (21-33); CHLORIDE 102 mmol/L (95-110); GFR AFRICAN-AMERICAN > 60; GLUCOSE,RANDOM 90 mg/dL (70-110); MAGNESIUM 2.1 mg/dL (1.7-2.2); PHOSPHOROUS 5.3 mg/dL (2.5-4.5); POTASSIUM 4.2 mmol/L (3.6-5.0); SODIUM 136 mmol/L (132-148); TOTAL PROTEIN 7.2 g/dL (5.8-8.3)
[2016-08-31] MEDS: Heparin25000 units/250ml 1/2NS 25,000 UNITS/250 ML BAG IV PRN (09:20)
--- NOTE | 2016-08-31 12:39 | CP.PCM.PN ---
<Reinaldo Hernandez - Last Filed: 08/31/16 12:43> Subjective - Date & Time of Evaluation Date of Evaluation: 08/31/16 Time of Evaluation: 07:50 - Subjective Subjective: Medicine progress note: Pt seen and examined at bedside. No acute events overnight. Pt denies any chest pain or sob. Denies any del valle, dizziness, abd pain, n/v/d. Objective - Vital Signs/Intake and Output Vital Signs (last 24 hours): Temp Pulse Resp BP Pulse Ox 97.9 F 72 20 123/71 98 08/31/16 05:47 08/31/16 10:00 08/31/16 05:47 08/31/16 05:47 08/31/16 05:47 Intake and Output: 08/31/16 08/31/16 06:59 18:59 Intake Total 1066 Output Total 0 Balance 1066 - Medications Medications: Current Medications Apixaban (Eliquis) 10 mg PO ONCE ONE PRN Reason: Protocol Stop: 08/31/16 13:01 Apixaban (Eliquis) 10 mg PO BID [facility] PRN Reason: Protocol Pantoprazole Sodium (Protonix Ec Tab) 40 mg PO 0600 [facility] Last Admin: 08/31/16 06:26 Dose: 40 mg - Labs Labs: 08/31/16 07:00 08/31/16 07:00 PT 11.2 Seconds (9.9-11.8) 08/30/16 06:30 INR 1.04 (0.93-1.08) 08/30/16 06:30 APTT 54.6 Seconds (23.7-30.8) H 08/31/16 07:00 - Constitutional Appears: No Acute Distress - Head Exam Head Exam: ATRAUMATIC, NORMAL INSPECTION, NORMOCEPHALIC - Eye Exam Eye Exam: EOMI, Normal appearance, PERRL Pupil Exam: NORMAL ACCOMODATION, PERRL - ENT Exam ENT Exam: Mucous Membranes Moist, Normal Exam - Neck Exam Neck Exam: Full ROM, Normal Inspection. absent: Lymphadenopathy - Respiratory Exam Respiratory Exam: Clear to Ausculation Bilateral, NORMAL BREATHING PATTERN. absent: Wheezes - Cardiovascular Exam Cardiovascular Exam: REGULAR RHYTHM, RRR, +S1, +S2. absent: Murmur - GI/Abdominal Exam GI & Abdominal Exam: Soft, Normal Bowel Sounds. absent: Distended, Tenderness - Back Exam Back Exam: NORMAL INSPECTION - Neurological Exam Neurological Exam: Alert, Awake, CN II-XII Intact, Normal Gait, Oriented x3 - Psychiatric Exam Psychiatric exam: Normal Affect, Normal Mood - Skin Skin Exam: Dry, Intact, Normal Color, Warm Assessment and Plan - Assessment and Plan (Free Text) Assessment: 21 yo female with history of endocarditis and hep C presents c/o chest pain associated with dyspnea and diaphoresis found to have RLL pulmonary embolism. 1. Pulmonary embolism - Heprin drip d/memo - Started in Eliquis 10mg BID for 7 days than 5mg BID -D-dimer elevated -EKG revealed normal sinus rhythm at 64bpm with no acute ST-T wave changes -CXR revealed no active disease -CT angio revealed RLL pulmonary embolism; see full report -Lower extremity venous duplex negative -Hematology consulted - Dr. Salazar - Coagulopathy workup ordered: Protein C/S, Antithrombin, Prothrombin, Factor V leiden. Rec no IVC filter. - Pulm consulted for recs cont current management 2. History of endocarditis -Echocardiogram ef of 65% mod size mobile tricuspid valve vegetation, mild TR, pulm HTN -Blood cultures neg x 24hr -ID consulted - Dr. Berg - ordered HIV, pending blood cx 3. Hepatitis C - Transaminitis - trending down -GI consulted - Dr. Hou - tylenol <10, f/u abd US, hepatitis and autoimmune panel ordered 4. Scabies -Permethrin cream 5. hx of drug abuse -UDS -alc level 6. GI/DVT ppx -Eliquis & protonix -[facility] Case and plan was seen, reviewed and discussed in detail with Dr Lazar. <Roderick Lazar - Last Filed: 08/31/16 13:33> Objective - Vital Signs/Intake and Output Vital Signs (last 24 hours): Temp Pulse Resp BP Pulse Ox 98.0 F 63 20 123/78 98 08/31/16 12:00 08/31/16 12:00 08/31/16 12:00 08/31/16 12:00 08/31/16 05:47 Intake and Output: 08/31/16 08/31/16 06:59 18:59 Intake Total 1066 Output Total 0 Balance 1066 - Medications Medications: Current Medications Apixaban (Eliquis) 10 mg PO BID [facility] PRN Reason: Protocol Pantoprazole Sodium (Protonix Ec Tab) 40 mg PO 0600 [facility] Last Admin: 08/31/16 06:26 Dose: 40 mg - Labs Labs: 08/31/16 07:00 08/31/16 07:00 PT 11.2 Seconds (9.9-11.8) 08/30/16 06:30 INR 1.04 (0.93-1.08) 08/30/16 06:30 APTT 54.6 Seconds (23.7-30.8) H 08/31/16 07:00 Attending/Attestation - Attestation I have personally seen and examined this patient.: Yes I have fully participated in the care of the patient.: Yes I have reviewed all pertinent clinical information, including history, physical exam and plan: Yes Notes (Text): Patient seen and examined with the resident. Agree with the resident's evaluation, assessment and plan. 21 yo female with history of endocarditis and hep C presents c/o chest pain associated with dyspnea and diaphoresis found to have RLL pulmonary embolism. Pulmonary embolism acute started eliquis History of endocarditis
--- NOTE | 2016-08-31 14:11 | PN ---
DATE: 08/31/2016 The patient is in bed, in no acute distress, nontoxic. PHYSICAL EXAMINATION: VITAL SIGNS: Temperature is 98, blood pressure is 120/70, respiratory rate of 16. HEENT: Unremarkable. NECK: Supple. LUNGS: Have decreased breath sounds. HEART: Normal S1, S2. ABDOMEN: Soft, nontender. LABORATORY EXAMINATION: Reveals the patient's white count is 10,000, hemoglobin of 12, platelets of 313. Chemistries reveals the BUN of 10, creatinine of 0.5. LFTs are improving. Procalcitonin 0.05. Urinalysis is noted. Miscellaneous is noted. Microbiology is noted. Blood cultures are negative. Urine culture has gram-positive cocci, less than 10,[address] Guy Moreland's gastroenterology note is reviewed from today. He states the patient has a history of polysubstance abuse, hepatitis C, chest pain, resolved, acute pulmonary emboli and improving LFTs . Dr. Peck's note from yesterday is reviewed. ASSESSMENT AND PLAN: A 21-year-old female with a history of intravenous drug abuse and she states sh e last used intravenous drugs a year ago. She recently was treated for endocarditis at [facility] she also has hepatitis C and alcoholism and now admitted with chest pain and presented with pulmona ry emboli and the culture is negative. No evidence of endocarditis and would not treat the echo find ings at this point. The patient is at risk for developing nosocomial infections. Jeovany Chisholm MD cc: [id number] TT: 08/31/2016 14:10:40 Confirmation # [id number] Dictation # [id number] en
[2016-08-31] MEDS ORDERED: Permethrin 5% Cream(60 gm) TOP ONE (14:15)
--- NOTE | 2016-08-31 14:55 | PN ---
DATE: 08/31/2016 SUBJECTIVE: The patient is resting comfortably with no complaints of shortness of breath, cough, whe ezing, chest congestion and no chest pain. No fever, chills, nausea, vomiting. No abdominal pain or diarrhea. PHYSICAL EXAMINATION: VITAL SIGNS: Temperature of 98.0, pulse is 68, respirations are 20, and BP is 123/78. SKIN: Warm and dry. HEAD: Atraumatic, normocephalic. EYES: Reactive to light. EARS, NOSE AND THROAT: Seem to be within normal limits. NECK: Supple. No JVD, no thyroid enlargement, no lymph nodes. HEART: Has regular rate and rhythm, normal S1, S2. LUNGS: Reveal good breath sounds bilaterally. ABDOMEN: Soft, nontender, normal bowel sounds. No organomegaly noted. GENITALIA AND RECTAL: Deferred. MUSCULOSKELETAL: No joint deformities. EXTREMITIES: Reveal no significant lower extremity edema. NEUROLOGIC: She seemed to be grossly intact. LABORATORIES: Her white count is 10.1, hemoglobin is 12.1, hematocrit 38.0 and platelets is 313,000. Sodium is 136, potassium 4.2, chloride 102, CO2 of 24 with a BUN of 10, creatinine of 0.5, and a gl ucose of 90. IMPRESSION: The patient has a right lower lobe pulmonary embolus and she has multiple pulmonary nodu les, etiology unclear. The patient has a right upper lobe bulla and has a history of drug abuse and also has a history of scabies. PLAN: We will continue with IV heparin and follow her PT, PTT and INR closely. The patient is in is olation at this time and we will continue to follow closely and treat aggressively along with the ot er consultants and the primary care doctor. Dillan Peck MD cc: [id number] TT: 08/31/2016 14:55:26 Confirmation # [id number] Dictation # [id number] en
[2016-09-01] MEDS: Pantoprazole 40 mg EC Tab PO SCH (05:22)
[2016-09-01 06:25] VITALS: O2SAT 98
[2016-09-01 09:50] LABS: ADD MANUAL DIFF? NO
[2016-09-01 09:57] LABS: BASO # 0.05 K/mm3 (0.0-2.0); BASO % 0.5 % (0.0-3.0); EOS # 0.3 (0.0-0.7); EOS % 3.1 % (1.5-5.0); GRAN # 6.05 (1.4-6.5); GRAN % 58.7 % (50.0-68.0); HEMATOCRIT 38.3 % (36.0-48.0); MEAN CELL VOLUME 83.3 fL (80.0-105.0); MEAN CORPUSCULAR HEMOGLOBIN 27.4 pg (25.0-35.0); MEAN CORPUSCULAR HGB CONC 32.9 g/dl (31.0-37.0); MEAN PLATELET VOLUME 9.7 fl (7.0-11.0); MONO # 0.9 (0.1-0.6); MONO % 8.7 % (1.0-6.0); PLATELET COUNT 303 10^3/uL (120.0-450.0); RED CELL DISTRIBUTION WIDTH 13.9 % (11.5-14.5); WHITE BLOOD COUNT 10.3 10^3/ul (4.5-11.0)
[2016-09-01 10:03] LABS: ALB/GLOB RATIO 1.3 (1.1-1.8); ALKALINE PHOSPHATASE 135 U/L (38-133); ALT/SGPT 399 U/L (7-56); AST/SGOT 218 U/L (15-39); BILIRUBIN,TOTAL 0.3 mg/dL (0.2-1.3); BLOOD UREA NITROGEN 18 mg/dL (7-21); CALCIUM 9.5 mg/dL (8.4-10.5); CARBON DIOXIDE 23 mmol/L (21-33); CHLORIDE 103 mmol/L (98-107); GFR AFRICAN-AMERICAN > 60; GLUCOSE,RANDOM 114 mg/dL (70-110); PHOSPHOROUS 5.6 mg/dL (2.5-4.5); SODIUM 137 mmol/L (132-148); TOTAL PROTEIN 7.5 g/dL (5.8-8.3)
[2016-09-01 10:06] LABS: POTASSIUM 4.4 mmol/L (3.6-5.0)
--- NOTE | 2016-09-01 10:42 | PN ---
DATE: 09/01/2016 The patient seen and examined at bedside. She is comfortable. She talks full sentences. She is not in respiratory or otherwise distress. No chest pain, no fever. PHYSICAL EXAMINATION: VITAL SIGNS: Temperature 98, heart rate 72, blood pressure 143/72, respiratory rate 20, oxygen saturation 98% on room air. HEAD AND NECK: Atraumatic. LUNGS: Clear to auscultation bilaterally. HEART: Regular rate and rhythm. S1, S2 normal. ABDOMEN: Soft, nontender, nondistended. MUSCULOSKELETAL: No C/C/E. NEUROLOGIC: The patient moves all extremities spontaneously. SKIN: Moist. PSYCHIATRIC: The patient is alert and oriented x 3. LABORATORY DATA: WBC 10.3, hemoglobin 12.6, platelet count 303. Sodium 137, potassium 4.4, chloride 103, carbon dioxide 23, BUN 18, creatinine 0.6, glucose 114. WBC 10.3, hemoglobin 12.6, platelet count 303. MEDICATIONS: Eliquis 10 mg p.o. b.i.d., Protonix, Prometrium. ASSESSMENT AND PLAN: This is a 21-year-old lady who presented with pulmonary embolism with borderline dilated right ventricle and borderline decreased right ventricular systolic function and mild to moderate pulmonary hypertension, most likely secondary to PE. At present time, the patient is on therapeutic anticoagulation with Eliquis. She is doing well. She is asymptomatic and no signs of respiratory insufficiency. Current recommednations suggest indefinite TAC with JUDD for unprovoked PE to prevent recurrence of PE unless high risk for bleeding or other contraindications exist. Patient was adviced that had she decided to get , eliquis would be contraindicated during and she should give enough time in advance warning to her PMD or Document Processor before getting for them be able to come up with alternative ways of TAC. Patient verbalized understanding. Also, she needs to repeat Echo in 6 months to ascertain resolution of RV strain and PH. Wesly Barron MD cc: [id number] TT: 09/01/2016 10:41:28 Confirmation # [id number] Dictation # [id number] jose ramon GUEVARA
--- NOTE | 2016-09-01 14:25 | CP.PCM.PN ---
<Josue Nelson - Last Filed: 09/01/16 14:25> Subjective - Date & Time of Evaluation Date of Evaluation: 09/01/16 Time of Evaluation: 14:25 - Subjective Subjective: Med progress note. Attending: Dr. Resendiz Pt seen /examined at bedside. No acute distress. No events overnight. Abdominal US pending. No fevers, chills, vomiting, diarrhea. Objective - Vital Signs/Intake and Output Vital Signs (last 24 hours): Temp Pulse Resp BP Pulse Ox 98.4 F 60 20 130/51 L 98 09/01/16 11:48 09/01/16 11:48 09/01/16 11:48 09/01/16 11:48 09/01/16 06:00 - Medications Medications: Current Medications Apixaban (Eliquis) 10 mg PO BID [facility] PRN Reason: Protocol Last Admin: 09/01/16 09:16 Dose: 10 mg Pantoprazole Sodium (Protonix Ec Tab) 40 mg PO 0600 [facility] Last Admin: 09/01/16 05:22 Dose: 40 mg - Labs Labs: 09/01/16 09:15 09/01/16 09:15 PT 11.2 Seconds (9.9-11.8) 08/30/16 06:30 INR 1.04 (0.93-1.08) 08/30/16 06:30 APTT 30.3 Seconds (23.7-30.8) 08/31/16 14:20 - Constitutional Appears: Non-toxic, No Acute Distress - Head Exam Head Exam: ATRAUMATIC, NORMAL INSPECTION, NORMOCEPHALIC - Eye Exam Eye Exam: EOMI - ENT Exam ENT Exam: Mucous Membranes Moist - Neck Exam Neck Exam: Full ROM, Normal Inspection - Respiratory Exam Respiratory Exam: Clear to Ausculation Bilateral, NORMAL BREATHING PATTERN - Cardiovascular Exam Cardiovascular Exam: +S1, +S2 - GI/Abdominal Exam GI & Abdominal Exam: Soft, Normal Bowel Sounds. absent: Tenderness - Extremities Exam Extremities Exam: Full ROM, Normal Inspection - Neurological Exam Neurological Exam: Alert, Awake, Oriented x3 - Psychiatric Exam Psychiatric exam: Normal Affect, Normal Mood - Skin Skin Exam: Dry, Intact, Normal Color, Warm Assessment and Plan - Assessment and Plan (Free Text) Assessment: This is a 21 yo female with history of endocarditis and hep C presents c/o chest pain associated with dyspnea and diaphoresis found to have RLL pulmonary embolism. 1. Pulmonary embolism - Heprin drip d/memo - Started in Eliquis 10mg BID for 7 days than 5mg BID -D-dimer elevated -EKG revealed normal sinus rhythm at 64bpm with no acute ST-T wave changes -CXR revealed no active disease -CT angio revealed RLL pulmonary embolism; see full report -Lower extremity venous duplex negative -Hematology consulted - Dr. Salazar - Coagulopathy workup ordered: Protein C/S, Antithrombin, Prothrombin, Factor V leiden. Rec no IVC filter. - Pulm consulted for recs cont current management 2. History of endocarditis -Echocardiogram ef of 65% mod size mobile tricuspid valve vegetation, mild TR, pulm HTN -Blood cultures neg x 24hr -ID consulted - Dr. Berg - ordered HIV, pending blood cx 3. Hepatitis C - Transaminitis - trending down -GI consulted - Dr. Hou - tylenol <10, f/u abd US, hepatitis and autoimmune panel ordered -abdominal us pending 4. Scabies -Permethrin cream 5. hx of drug abuse -UDS negative 6. GI/DVT ppx -Eliquis & protonix -HHD dw Dr. Resendiz <Astrid OSCAR,[facility] - Last Filed: 09/03/16 08:06> Objective - Vital Signs/Intake and Output Vital Signs (last 24 hours): Temp Pulse Resp BP Pulse Ox 99.3 F 75 18 154/72 H 98 09/02/16 18:00 09/02/16 18:00 09/02/16 18:00 09/02/16 18:00 09/01/16 06:00 - Labs Labs: 09/02/16 06:00 09/02/16 06:00 PT 11.2 Seconds (9.9-11.8) 08/30/16 06:30 INR 1.04 (0.93-1.08) 08/30/16 06:30 APTT 30.3 Seconds (23.7-30.8) 08/31/16 14:20 Attending/Attestation - Attestation I have personally seen and examined this patient.: Yes I have fully participated in the care of the patient.: Yes I have reviewed all pertinent clinical information, including history, physical exam and plan: Yes Notes (Text): 09/03/16 08:00 Patient was seen and examined with medical radiation tech .Agreed with resident assessment and plan. 21 yo female with history of endocarditis and hep C presents c/o chest pain associated with dyspnea and diaphoresis found to have RLL pulmonary embolism, was started on IV heparin, was switched to Apixiban .Patient is also found to have tricuspid vegetation on Echo.She is afebrile, blood cultures are negative, no need for any antibiotics as per ID.Patient LFT are coming down.Abdominal USG is pending, will follow up results. Management plan was discussed in detail with patient Education was provided.
--- NOTE | 2016-09-01 16:04 | PN ---
DATE: 09/01/2016 The patient is in bed, in no acute distress, nontoxic. PHYSICAL EXAMINATION: VITAL SIGNS: Temperature is 98, blood pressure is 130/50, respiratory rate of 18. HEENT: Unremarkable. NECK: Supple. LUNGS: Have decreased breath sounds. HEART: Normal S1, S2. ABDOMEN: Soft. LABORATORY EXAMINATION: Reveals a white count of 10, hemoglobin of 12, platelets of 303. Chemistrie s reveals a BUN of 18, creatinine of 0.6. The LFTs are noted and procalcitonin is 0.05. Microbiolog y reveals negative blood cultures, urine has a gram-positive cocci. Review of orders reveals the patient to be on no antibiotics. Dr. Salas note is reviewed. Dr. Barron's note is also reviewed. ASSESSMENT AND PLAN: A 21-year-old female with a history of intravenous drug abuse and states that maia montgomery used intravenous drugs a year ago. Recently, was treated for endocarditis in [place]. She al so has hepatitis C and alcoholism. Admitted with chest pain, found to have pulmonary emboli and curr ently off of antibiotics, afebrile. Treatment for pulmonary emboli as per pulmonary. Hypercoagulabl e state is noted and patient is on Eliquis. Jeovany Chisholm MD cc: [phone] TT: 09/01/2016 16:04:06 Confirmation # [id number] Dictation # [id number] en
--- NOTE | 2016-09-01 20:43 | US ---
PROCEDURE: Portal vein duplex ultrasound. CLINICAL HISTORY: Cirrhosis. Deteriorating liver function. Evaluate for portal vein thrombosis. PHYSICIAN(S): Luis Carlos Soni M.D. FINDINGS: The extrahepatic portal vein is patent with hepatopetal flow. No sonographic evidence for thrombus or obstruction is seen. The 3 hepatic veins are visualized centrally and patent. The hepatic artery is patent. IMPRESSION: 1. Patent portal vein with hepatopetal flow.
[2016-09-02 06:01] LABS: CARDIOLIPIN AB (IGA) <11 APL (<=11)
[2016-09-02 06:15] LABS: ADD MANUAL DIFF? NO
[2016-09-02 06:21] LABS: BASO # 0.05 K/mm3 (0.0-2.0); BASO % 0.4 % (0.0-3.0); EOS # 0.3 (0.0-0.7); EOS % 2.3 % (1.5-5.0); GRAN # 6.27 (1.4-6.5); HEMATOCRIT 40.8 % (36.0-48.0); LYMPH # 3.7 (1.2-3.4); MEAN CELL VOLUME 82.1 fL (80.0-105.0); MEAN CORPUSCULAR HEMOGLOBIN 26.2 pg (25.0-35.0); MEAN CORPUSCULAR HGB CONC 31.9 g/dl (31.0-37.0); MONO # 0.9 (0.1-0.6); MONO % 8.3 % (1.0-6.0); PLATELET COUNT 335 10^3/uL (120.0-450.0); RED CELL DISTRIBUTION WIDTH 13.8 % (11.5-14.5); WHITE BLOOD COUNT 11.2 10^3/ul (4.5-11.0)
[2016-09-02] MEDS: Pantoprazole 40 mg EC Tab PO SCH (06:28)
[2016-09-02 06:36] LABS: ALB/GLOB RATIO 1.3 (1.1-1.8); ALKALINE PHOSPHATASE 156 U/L (38-133); ALT/SGPT 434 U/L (7-56); AST/SGOT 214 U/L (15-39); BILIRUBIN,TOTAL 0.5 mg/dL (0.2-1.3); BLOOD UREA NITROGEN 18 mg/dL (7-21); CALCIUM 9.5 mg/dL (8.4-10.5); CARBON DIOXIDE 23 mmol/L (21-33); CHLORIDE 100 mmol/L (95-110); GFR AFRICAN-AMERICAN > 60; GLUCOSE,RANDOM 86 mg/dL (70-110); MAGNESIUM 2.1 mg/dL (1.7-2.2); PHOSPHOROUS 5.6 mg/dL (2.5-4.5); POTASSIUM 4.5 mmol/L (3.6-5.0); SODIUM 134 mmol/L (132-148); TOTAL PROTEIN 8.3 g/dL (5.8-8.3)
[2016-09-02 07:19] LABS: PHOSPHATIDYLSERINE AB IGM <25 U/mL (<25)
--- NOTE | 2016-09-02 09:39 | US ---
HISTORY: Elevated LFTs, HCV COMPARISON: None. TECHNIQUE: Grayscale imaging was performed. FINDINGS: LIVER: Measures 15.0 cm. Normal echogenicity of the liver parenchyma. No mass. No intrahepatic bile duct dilatation. GALLBLADDER: Unremarkable. No gallstones. COMMON BILE DUCT: Measures 3.5 mm. No stones. No dilatation. PANCREAS: Unremarkable as visualized. No mass. No ductal dilatation. RIGHT KIDNEY: Measures 10.6cm. Normal echogenicity. No calculus, mass, or hydronephrosis. LEFT KIDNEY: Measures 11.7cm. Normal echogenicity. No calculus, mass, or hydronephrosis. SPLEEN: Normal in size and contour. No mass. AORTA: No aneurysmal dilatation. IVC: Unremarkable. OTHER FINDINGS: None. IMPRESSION: Diffuse increased echogenicity in the liver may reflect hepatic steatosis however parenchymal infectious/ inflammatory etiologies cannot be entirely excluded. Clinical and laboratory correlation is advised.
--- NOTE | 2016-09-02 12:41 | CP.PCM.DIS ---
<Josue Nelson - Last Filed: 09/02/16 12:45> Provider - Provider Date of Admission: 08/29/16 17:05 Attending physician: Alex Resendiz MD Primary care physician: Keith Sequeira MD Consults: MARIBETH- Kathrine Peck/Anderson Moreland Time Spent in preparation of Discharge (in minutes): 45 Hospital Course - Lab Results Lab Results: Most Recent Lab Values WBC 11.2 10^3/ul (4.5-11.0) H 09/02/16 06:00 RBC 4.97 10^6/uL (3.5-6.1) 09/02/16 06:00 Hgb 13.0 gm/dL (12.0-16.0) 09/02/16 06:00 Hct 40.8 % (36.0-48.0) 09/02/16 06:00 MCV 82.1 fL (80.0-105.0) 09/02/16 06:00 MCH 26.2 pg (25.0-35.0) 09/02/16 06:00 MCHC 31.9 g/dl (31.0-37.0) 09/02/16 06:00 RDW 13.8 % (11.5-14.5) 09/02/16 06:00 Plt Count 335 10^3/uL (120.0-450.0) 09/02/16 06:00 MPV 10.0 fl (7.0-11.0) 09/02/16 06:00 Gran % 56.0 % (50.0-68.0) 09/02/16 06:00 Lymph % (Auto) 33.0 % (22.0-35.0) 09/02/16 06:00 Yates % (Auto) 8.3 % (1.0-6.0) H 09/02/16 06:00 Eos % (Auto) 2.3 % (1.5-5.0) 09/02/16 06:00 Baso % (Auto) 0.4 % (0.0-3.0) 09/02/16 06:00 Gran # 6.27 (1.4-6.5) 09/02/16 06:00 Lymph # 3.7 (1.2-3.4) H 09/02/16 06:00 Yates # 0.9 (0.1-0.6) H 09/02/16 06:00 Eos # 0.3 (0.0-0.7) 09/02/16 06:00 Baso # 0.05 K/mm3 (0.0-2.0) 09/02/16 06:00 PT 11.2 Seconds (9.9-11.8) 08/30/16 06:30 INR 1.04 (0.93-1.08) 08/30/16 06:30 APTT 30.3 Seconds (23.7-30.8) 08/31/16 14:20 D-Dimer, Quantitative 1.02 mg/L FEU (0-0.50) H 08/29/16 14:31 Lupus Anticoagulant see note 08/30/16 06:30 LA PTT Screen 87 sec (<=40) H 08/30/16 06:30 dRVVT Mixing Study 35 sec (<=45) 08/30/16 06:30 dRVVT Mix Interpret Not indicated 08/30/16 06:30 Hexagonal Phase Confirm Negative (Negative) 08/30/16 09:00 Protein C Activity 95 % (70-180) 08/30/16 06:30 Protein S Activity 89 % (60-140) 08/30/16 06:30 Antithrombin III Activ 108 % activity (80-120) 08/30/16 06:30 Factor V TNP 08/30/16 06:30 Sodium 134 mmol/L (132-148) 09/02/16 06:00 Potassium 4.5 mmol/L (3.6-5.0) 09/02/16 06:00 Chloride 100 mmol/L (95-110) 09/02/16 06:00 Carbon Dioxide 23 mmol/L (21-33) 09/02/16 06:00 Anion Gap 16 (10-20) 09/02/16 06:00 BUN 18 mg/dL (7-21) 09/02/16 06:00 Creatinine 0.5 mg/dL (0.5-1.4) 09/02/16 06:00 Est GFR ( Amer) > 60 09/02/16 06:00 Est GFR (Non-Af Amer) > 60 09/02/16 06:00 Random Glucose 86 mg/dL (70-110) 09/02/16 06:00 Calcium 9.5 mg/dL (8.4-10.5) 09/02/16 06:00 Phosphorus 5.6 mg/dL (2.5-4.5) H 09/02/16 06:00 Magnesium 2.1 mg/dL (1.7-2.2) 09/02/16 06:00 Total Bilirubin 0.5 mg/dL (0.2-1.3) 09/02/16 06:00 AST 214 U/L (15-39) H 09/02/16 06:00 ALT 434 U/L (7-56) H 09/02/16 06:00 Alkaline Phosphatase 156 U/L (38-133) H 09/02/16 06:00 Troponin I < 0.01 ng/mL 08/29/16 14:31 NT-Pro-B Natriuret Pep 76.0 pg/mL (0-450) 08/29/16 14:31 Total Protein 8.3 g/dL (5.8-8.3) 09/02/16 06:00 Albumin 4.8 g/dL (3.0-4.8) 09/02/16 06:00 Globulin 3.6 gm/dL 09/02/16 06:00 Albumin/Globulin Ratio 1.3 (1.1-1.8) 09/02/16 06:00 Procalcitonin < 0.05 NG/ML (0.19-0.49) L 08/30/16 06:30 Urine Color Yellow (YELLOW) 08/29/16 14:40 Urine Appearance Clear (CLEAR) 08/29/16 14:40 Urine pH 7.5 (4.7-8.0) 08/29/16 14:40 Ur Specific [place] 1.015 (1.005-1.035) 08/29/16 14:40 Urine Protein 100 mg/dL (<30 mg/dL) H 08/29/16 14:40 Urine Glucose (UA) Negative mg/dL (NEGATIVE) 08/29/16 14:40 Urine Ketones Negative mg/dL (NEGATIVE) 08/29/16 14:40 Urine Blood Negative (NEGATIVE) 08/29/16 14:40 Urine Nitrate Negative (NEGATIVE) 08/29/16 14:40 Urine Bilirubin Small (NEGATIVE) H 08/29/16 14:40 Urine Urobilinogen 2.0 E.U./dL (<1 E.U./dL) H 08/29/16 14:40 Ur Leukocyte Esterase Negative Jed/uL (NEGATIVE) 08/29/16 14:40 Urine RBC 0 - 2 /hpf (0-2) 08/29/16 14:40 Urine WBC 1 - 3 /hpf (0-6) 08/29/16 14:40 Ur Epithelial Cells Many /hpf (0-5) 08/29/16 14:40 Amorphous Sediment Few 08/29/16 14:40 Urine Bacteria Many (NEG) 08/29/16 14:40 Urine Other Uyeast 08/29/16 14:40 Urine HCG, Qual Negative (NEGATIVE) 08/29/16 14:40 Urine Opiates Screen Negative (NEGATIVE) 08/31/16 23:48 Urine Methadone Screen Negative (NEGATIVE) 08/31/16 23:48 Acetaminophen < 10.0 ug/ml (10.0-20.0) L 08/30/16 08:30 Ur Barbiturates Screen Negative (NEGATIVE) 08/31/16 23:48 Ur Phencyclidine Scrn Negative (NEGATIVE) 08/31/16 23:48 Ur Amphetamines Screen Negative (NEGATIVE) 08/31/16 23:48 U Benzodiazepines Scrn Negative (NEGATIVE) 08/31/16 23:48 U Oth Cocaine Metabols Negative (NEGATIVE) 08/31/16 23:48 U Cannabinoids Screen Negative (NEGATIVE) 08/31/16 23:48 Alcohol, Quantitative < 10 mg/dL (0-10) 08/30/16 09:00 THANH Screen Negative (Negative) 08/30/16 09:00 THANH Titer TEST NOT PERFORMED 08/30/16 09:00 THANH Titer 2 TEST NOT PERFORMED 08/30/16 09:00 THANH Pattern TEST NOT PERFORMED 08/30/16 09:00 THANH Pattern 2 TEST NOT PERFORMED 08/30/16 09:00 Anti-Mitochondrial Ab Negative (Negative) 08/30/16 09:00 Anti-Smooth Muscle Ab Negative (Negative) 08/30/16 09:00 Phosphatidylserine IgG <10 U/mL (<10) 08/30/16 09:00 Phosphatidylserine IgA <20 U/mL (<20) 08/30/16 09:00 Phosphatidylserine IgM <25 U/mL (<25) 08/30/16 09:00 Anti-Cardiolipin IgG Ab <14 GPL (<=14) 08/30/16 09:00 Anti-Cardiolipin IgA Ab <11 APL (<=11) 08/30/16 09:00 Anti-Cardiolipin IgM Ab <12 MPL (<=12) 08/30/16 09:00 Hepatitis A IgM Ab Negative (NEGATIVE) 08/30/16 09:00 Hep Bs Antigen Negative (NEGATIVE) 08/30/16 09:00 Hep B Core IgM Ab Negative (NEGATIVE) 08/30/16 09:00 Hepatitis C Antibody Reactive (NEGATIVE) H 08/30/16 09:00 HIV 1&2 Ag/Ab, 4th Gen Nonreactive (Nonreactive) 08/30/16 16:05 Prothrombin Mut Interp TNP 08/30/16 06:30 Prothrombin Gene Mutate TNP 08/30/16 06:30 Prothromb Gene Review TNP 08/30/16 06:30 - Hospital Course Hospital Course: Admit date- 08/29 DC date 09/02 Attending- Astrid Consults Kathrine Peck/Anderson Moreland Discharge dx 1. PE 2. Hx of endocarditis 3. Hx of drug abuse HPI: see h/p Labs: lab data Hospital course This is a 21 yo female with history of endocarditis and hep C presents c/o chest pain associated with dyspnea and diaphoresis found to have RLL pulmonary embolism. 1. Pulmonary embolism - Heprin drip started initially then d/memo - Started in Eliquis 10mg BID for 7 days than 5mg BID -D-dimer elevated -EKG revealed normal sinus rhythm at 64bpm with no acute ST-T wave changes -CXR revealed no active disease -CT angio revealed RLL pulmonary embolism; see full report -Lower extremity venous duplex negative -Hematology consulted - Dr. Salazar - Coagulopathy workup ordered: Protein C/S, Antithrombin, Prothrombin, Factor V leiden. Rec no IVC filter. - Pulm consulted for recs cont current management 2. History of endocarditis -Echocardiogram ef of 65% mod size mobile tricuspid valve vegetation, mild TR, pulm HTN -Blood cultures neg x 24hr -ID consulted - Dr. Berg - ordered HIV, pending blood cx >> blood cultures neg 3. Hepatitis C - Transaminitis - trending down, stable on day of DC -GI consulted - Dr. Hou - tylenol <10 -abdominal us shows patent portal vein along with fatty liver 4. Scabies -Permethrin cream 5. hx of drug abuse -UDS negative 6. GI/DVT ppx -Eliquis & protonix -HHD DC meds 1. eliquis 10 bid for 4 more days, then 5 bid 2. lexapro DC instructions Please dc home. Return if condition worsens. Do not take eliquis if . Take eliquis 10 bid for 4 more days. - Date & Time of H&P Date of H&P: 08/29/16 Time of H&P: 19:55 Discharge Exam - Head Exam Head Exam: ATRAUMATIC, NORMAL INSPECTION, NORMOCEPHALIC - Eye Exam Eye Exam: EOMI - ENT Exam ENT Exam: Mucous Membranes Moist - Neck Exam Neck exam: Full Rom, Normal Inspection - Respiratory Exam Respiratory Exam: NORMAL BREATHING PATTERN, UNREMARKABLE - Cardiovascular Exam Cardiovascular Exam: +S1, +S2 - GI/Abdominal Exam GI & Abdominal Exam: Normal Bowel Sounds - Extremities Exam Extremities exam: full ROM, normal inspection - Back Exam Back exam: NORMAL INSPECTION - Neurological Exam Neurological exam: Alert, Oriented x3 - Psychiatric Exam Psychiatric exam: Normal Affect, Normal Mood - Skin Skin Exam: Dry, Intact, Normal Color, Warm Discharge Plan - Discharge Medications Prescriptions: Apixaban [Eliquis] 5 mg PO BID #60 tablet RX: Apixaban [Eliquis] 10 mg PO BID #8 tab - Follow Up Plan Condition: STABLE Disposition: HOME/ ROUTINE Instructions: Pulmonary Embolism (DC), How to Stop Smoking (DC), Cigarette Smoking and Your Health (GEN), Scabies (DC), Dyspnea (GEN) Referrals: Keith Sequeira MD [Primary Care Provider] - <Astrid OSCRA,Alex - Last Filed: 09/03/16 08:11> Provider - Provider Date of Admission: 08/29/16 17:05 Attending physician: Alex Resendiz MD Primary care physician: Keith Sequeira MD Hospital Course - Lab Results Lab Results: Most Recent Lab Values WBC 11.2 10^3/ul (4.5-11.0) H 09/02/16 06:00 RBC 4.97 10^6/uL (3.5-6.1) 09/02/16 06:00 Hgb 13.0 gm/dL (12.0-16.0) 09/02/16 06:00 Hct 40.8 % (36.0-48.0) 09/02/16 06:00 MCV 82.1 fL (80.0-105.0) 09/02/16 06:00 MCH 26.2 pg (25.0-35.0) 09/02/16 06:00 MCHC 31.9 g/dl (31.0-37.0) 09/02/16 06:00 RDW 13.8 % (11.5-14.5) 09/02/16 06:00 Plt Count 335 10^3/uL (120.0-450.0) 09/02/16 06:00 MPV 10.0 fl (7.0-11.0) 09/02/16 06:00 Gran % 56.0 % (50.0-68.0) 09/02/16 06:00 Lymph % (Auto) 33.0 % (22.0-35.0) 09/02/16 06:00 Yates % (Auto) 8.3 % (1.0-6.0) H 09/02/16 06:00 Eos % (Auto) 2.3 % (1.5-5.0) 09/02/16 06:00 Baso % (Auto) 0.4 % (0.0-3.0) 09/02/16 06:00 Gran # 6.27 (1.4-6.5) 09/02/16 06:00 Lymph # 3.7 (1.2-3.4) H 09/02/16 06:00 Yates # 0.9 (0.1-0.6) H 09/02/16 06:00 Eos # 0.3 (0.0-0.7) 09/02/16 06:00 Baso # 0.05 K/mm3 (0.0-2.0) 09/02/16 06:00 PT 11.2 Seconds (9.9-11.8) 08/30/16 06:30 INR 1.04 (0.93-1.08) 08/30/16 06:30 APTT 30.3 Seconds (23.7-30.8) 08/31/16 14:20 D-Dimer, Quantitative 1.02 mg/L FEU (0-0.50) H 08/29/16 14:31 Lupus Anticoagulant see note 08/30/16 06:30 LA PTT Screen 87 sec (<=40) H 08/30/16 06:30 dRVVT Mixing Study 35 sec (<=45) 08/30/16 06:30 dRVVT Mix Interpret Not indicated 08/30/16 06:30 Hexagonal Phase Confirm Negative (Negative) 08/30/16 09:00 Protein C Antigen 87 % (70-140) 08/30/16 09:00 Protein C Activity 95 % (70-180) 08/30/16 06:30 Protein S Activity 89 % (60-140) 08/30/16 06:30 Antithrombin III Activ 108 % activity (80-120) 08/30/16 06:30 Factor V TNP 08/30/16 06:30 Sodium 134 mmol/L (132-148) 09/02/16 06:00 Potassium 4.5 mmol/L (3.6-5.0) 09/02/16 06:00 Chloride 100 mmol/L (95-110) 09/02/16 06:00 Carbon Dioxide 23 mmol/L (21-33) 09/02/16 06:00 Anion Gap 16 (10-20) 09/02/16 06:00 BUN 18 mg/dL (7-21) 09/02/16 06:00 Creatinine 0.5 mg/dL (0.5-1.4) 09/02/16 06:00 Est GFR ( Amer) > 60 09/02/16 06:00 Est GFR (Non-Af Amer) > 60 09/02/16 06:00 Random Glucose 86 mg/dL (70-110) 09/02/16 06:00 Calcium 9.5 mg/dL (8.4-10.5) 09/02/16 06:00 Phosphorus 5.6 mg/dL (2.5-4.5) H 09/02/16 06:00 Magnesium 2.1 mg/dL (1.7-2.2) 09/02/16 06:00 Total Bilirubin 0.5 mg/dL (0.2-1.3) 09/02/16 06:00 AST 214 U/L (15-39) H 09/02/16 06:00 ALT 434 U/L (7-56) H 09/02/16 06:00 Alkaline Phosphatase 156 U/L (38-133) H 09/02/16 06:00 Troponin I < 0.01 ng/mL 08/29/16 14:31 NT-Pro-B Natriuret Pep 76.0 pg/mL (0-450) 08/29/16 14:31 Total Protein 8.3 g/dL (5.8-8.3) 09/02/16 06:00 Albumin 4.8 g/dL (3.0-4.8) 09/02/16 06:00 Globulin 3.6 gm/dL 09/02/16 06:00 Albumin/Globulin Ratio 1.3 (1.1-1.8) 09/02/16 06:00 Procalcitonin < 0.05 NG/ML (0.19-0.49) L 08/30/16 06:30 Urine Color Yellow (YELLOW) 08/29/16 14:40 Urine Appearance Clear (CLEAR) 08/29/16 14:40 Urine pH 7.5 (4.7-8.0) 08/29/16 14:40 Ur Specific [place] 1.015 (1.005-1.035) 08/29/16 14:40 Urine Protein 100 mg/dL (<30 mg/dL) H 08/29/16 14:40 Urine Glucose (UA) Negative mg/dL (NEGATIVE) 08/29/16 14:40 Urine Ketones Negative mg/dL (NEGATIVE) 08/29/16 14:40 Urine Blood Negative (NEGATIVE) 08/29/16 14:40 Urine Nitrate Negative (NEGATIVE) 08/29/16 14:40 Urine Bilirubin Small (NEGATIVE) H 08/29/16 14:40 Urine Urobilinogen 2.0 E.U./dL (<1 E.U./dL) H 08/29/16 14:40 Ur Leukocyte Esterase Negative Jed/uL (NEGATIVE) 08/29/16 14:40 Urine RBC 0 - 2 /hpf (0-2) 08/29/16 14:40 Urine WBC 1 - 3 /hpf (0-6) 08/29/16 14:40 Ur Epithelial Cells Many /hpf (0-5) 08/29/16 14:40 Amorphous Sediment Few 08/29/16 14:40 Urine Bacteria Many (NEG) 08/29/16 14:40 Urine Other Uyeast 08/29/16 14:40 Urine HCG, Qual Negative (NEGATIVE) 08/29/16 14:40 Urine Opiates Screen Negative (NEGATIVE) 08/31/16 23:48 Urine Methadone Screen Negative (NEGATIVE) 08/31/16 23:48 Acetaminophen < 10.0 ug/ml (10.0-20.0) L 08/30/16 08:30 Ur Barbiturates Screen Negative (NEGATIVE) 08/31/16 23:48 Ur Phencyclidine Scrn Negative (NEGATIVE) 08/31/16 23:48 Ur Amphetamines Screen Negative (NEGATIVE) 08/31/16 23:48 U Benzodiazepines Scrn Negative (NEGATIVE) 08/31/16 23:48 U Oth Cocaine Metabols Negative (NEGATIVE) 08/31/16 23:48 U Cannabinoids Screen Negative (NEGATIVE) 08/31/16 23:48 Alcohol, Quantitative < 10 mg/dL (0-10) 08/30/16 09:00 THANH Screen Negative (Negative) 08/30/16 09:00 THANH Titer TEST NOT PERFORMED 08/30/16 09:00 THANH Titer 2 TEST NOT PERFORMED 08/30/16 09:00 THANH Pattern TEST NOT PERFORMED 08/30/16 09:00 THANH Pattern 2 TEST NOT PERFORMED 08/30/16 09:00 Anti-Mitochondrial Ab Negative (Negative) 08/30/16 09:00 [id number] Ab 10 ANTHONY (<=20) 08/30/16 09:00 Beta-2 GPI IgG Ab <9 SGU (<=20) 08/30/16 09:00 Beta-2 GPI IgM Ab <9 SMU (<=20) 08/30/16 09:00 Anti-Smooth Muscle Ab Negative (Negative) 08/30/16 09:00 Phosphatidylserine IgG <10 U/mL (<10) 08/30/16 09:00 Phosphatidylserine IgA <20 U/mL (<20) 08/30/16 09:00 Phosphatidylserine IgM <25 U/mL (<25) 08/30/16 09:00 Anti-Phospholipid Intrp see note 08/30/16 09:00 Anti-Cardiolipin IgG Ab <14 GPL (<=14) 08/30/16 09:00 Anti-Cardiolipin IgA Ab <11 APL (<=11) 08/30/16 09:00 Anti-Cardiolipin IgM Ab <12 MPL (<=12) 08/30/16 09:00 Hepatitis A IgM Ab Negative (NEGATIVE) 08/30/16 09:00 Hep Bs Antigen Negative (NEGATIVE) 08/30/16 09:00 Hep B Core IgM Ab Negative (NEGATIVE) 08/30/16 09:00 Hepatitis C Antibody Reactive (NEGATIVE) H 08/30/16 09:00 HIV 1&2 Ag/Ab, 4th Gen Nonreactive (Nonreactive) 08/30/16 16:05 Prothrombin Mut Interp TNP 08/30/16 06:30 Prothrombin Gene Mutate TNP 08/30/16 06:30 Prothromb Gene Review TNP 08/30/16 06:30 Attending/Attestation - Attestation I have personally seen and examined this patient.: Yes I have fully participated in the care of the patient.: Yes I have reviewed all pertinent clinical information, including history, physical exam and plan: Yes Notes (Text): 09/03/16 08:08 Patient was seen and examined with medical information officer .Agreed with resident assessment and plan. 21 yo female with history of endocarditis and hep C presents c/o chest pain associated with dyspnea and diaphoresis found to have RLL pulmonary embolism, was started on IV heparin, was switched to Apixiban .Risk and benefit was discussed in detail.Patient was also advised that Apixiban is not approved for use in and if she would get Preganant, she need to call her PMD and should be switched to other anticoagulant. Patient was also found to have tricuspid vegetation on Echo.She is afebrile, blood cultures are negative, no need for any antibiotics as per ID.Patient LFT are coming down. She will be discharged home and will follow up with PCP and hematology. Management plan was discussed in detail with patient Education was provided.
[2016-09-02 18:25] VITALS: BP 154/72; PULSE 75; RESP 18; TEMP 99.3
--- NOTE | 2016-09-02 20:13 | CP.PCM.PN ---
Subjective - Date & Time of Evaluation Date of Evaluation: 09/02/16 Time of Evaluation: 07:00 - Subjective Subjective: DOING WELL Objective - Vital Signs/Intake and Output Vital Signs (last 24 hours): Temp Pulse Resp BP Pulse Ox 99.3 F 75 18 154/72 H 98 09/02/16 18:00 09/02/16 18:00 09/02/16 18:00 09/02/16 18:00 09/01/16 06:00 Intake and Output: 09/02/16 09/03/16 18:59 06:59 Intake Total 120 Balance 120 - Labs Labs: 09/02/16 06:00 09/02/16 06:00 PT 11.2 Seconds (9.9-11.8) 08/30/16 06:30 INR 1.04 (0.93-1.08) 08/30/16 06:30 APTT 30.3 Seconds (23.7-30.8) 08/31/16 14:20 - Constitutional Appears: Well - Head Exam Head Exam: ATRAUMATIC, NORMAL INSPECTION, NORMOCEPHALIC - Eye Exam Eye Exam: EOMI, Normal appearance, PERRL Pupil Exam: NORMAL ACCOMODATION, PERRL - ENT Exam ENT Exam: Mucous Membranes Moist, Normal Exam - Neck Exam Neck Exam: Full ROM, Normal Inspection. absent: Lymphadenopathy - Respiratory Exam Respiratory Exam: Clear to Ausculation Bilateral, NORMAL BREATHING PATTERN - Cardiovascular Exam Cardiovascular Exam: REGULAR RHYTHM, +S1, +S2. absent: Murmur - GI/Abdominal Exam GI & Abdominal Exam: Soft, Normal Bowel Sounds. absent: Tenderness - Rectal Exam Rectal Exam: NORMAL INSPECTION - Exam Exam: Circumcision, NORMAL INSPECTION External exam: NORMAL EXTERNAL EXAM Speculum exam: NORMAL SPECULUM EXAM Bimanual exam: NORMAL BIMANUAL EXAM - Extremities Exam Extremities Exam: Full ROM, Normal Capillary Refill, Normal Inspection. absent : Joint Swelling, Pedal Edema - Back Exam Back Exam: NORMAL INSPECTION - Neurological Exam Neurological Exam: Alert, Awake, CN II-XII Intact, Normal Gait, Oriented x3 - Psychiatric Exam Psychiatric exam: Normal Affect, Normal Mood - Skin Skin Exam: Dry, Intact, Normal Color, Warm Assessment and Plan (1) Pulmonary embolism Status: Acute - Assessment and Plan (Free Text) Assessment: PULM EMBOLI Plan: OFF OF ABX
[2016-09-02 22:13] LABS: B2 GLYCOPROTEIN I AB(IGA) 10 SAU (<=20); B2 GLYCOPROTEIN I AB(IGG) <9 SGU (<=20); B2 GLYCOPROTEIN I AB(IGM) <9 SMU (<=20); PHOSPHATIDYLSERINE AB IGA <20 U/mL (<20)
== END 2016-09-02 18:54 | disposition home or self-care (01) | DRG 78 ==
LOC: ED 14:03 → ERH 17:05 → 2RSO 20:58 → 2RNO 08-30 03:52
PROVIDERS: ADMIT Internal Medicine; ATTEND Internal Medicine
DX: I26.99 Other pulmonary embolism without acute cor pulmonale (principal); D68.59 Other primary thrombophilia; I27.2 Other secondary pulmonary hypertension; J43.9 Emphysema, unspecified; B86 Scabies; B19.20 Unspecified viral hepatitis C without hepatic coma; F10.20 Alcohol dependence, uncomplicated; F31.9 Bipolar disorder, unspecified; F17.210 Nicotine dependence, cigarettes, uncomplicated; Z86.79 Personal history of other diseases of the circulatory system; Z79.01 Long term (current) use of anticoagulants; Z87.898 Personal history of other specified conditions; K76.0 Fatty (change of) liver, not elsewhere classified